=== PATIENT | female | born 1965 | race Caucasian/White ===

== ENCOUNTER 2024-02-17 10:43 | Outpatient (AMB) | payer BC, SELFPAY ==
--- NOTE | 2024-02-17 10:28 | A.OFFPSYCH_ITS ---
Intake Vital Signs 02/17/24 10:28 Height 5 ft 5 in Weight 157 lb Intake Visit Reasons: ADHD , EVERTON severe, depression, Major depressive disorder, recurrent episode, mild Event Marketing Manager Required: No Allergies Sulfa (Sulfonamide Antibiotics) Allergy (Intermediate, Unverified 02/17/24 10:30) Rash epinephrine Adverse Reaction (Unknown, Verified 02/17/24 10:30) rash Medication List - Last Reconciled 02/17/24 by Taty Bingham APRN citalopram 40 mg PO DAILY hydroxyzine HCl mg PO methylphenidate HCl 10 mg PO BID HPI- Psychiatric Chief Complaint: ADHD , EVERTON severe, depression, Major depressive disorder, recurrent episode, mild HPI Narrative: Pt has had severe anxiety and stress; she is not sure about precipitant. 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 reports she is taking the hydroxyzine 25mg BID. No recent hives; she has had itching but not hives. she still has nightmares about work. no loss of appetite; no change in sleep. she reports some sexual side effects from meds. she reports she is doing better overall; EVERTON-7 is an 8. she is getting 6-7 hours of sleep. she is taking meds regularly; she is seeing her therapist regularly. Past Psychiatric History: In therapy for 20 + yrs. On meds currently2 serious depressive episodes- first episode of depression at age 19 when father . then again at age 38 then again at age 48. For years, used keeping busy to manage anxiety. As getting older doesn't want to use busyness to cope; she would like to be able to relax more often and do leisure activities. Depression at age 38 - couldn't work, no energy, cried all the time, sad, no motivation. Had a very bad work situation at the time No IPLOC, no PHP or IOP. Subjective Subjective Subjective Medication Compliance: Yes Side effects from medications: No Review of Systems Medical Review of Systems: unchanged Mental Status Exam Mental Status Exam Patient Appearance: Well Grooomed and Appropriate Patient Orientation: Person, Place, Time and Situation Level of Consciousness: Appropriate Patient Behavior: Appropriate Mood Description: Anxious and Apprehensive Affect Description: Constricted and Anxious Patient Cognition Impaired: No Ability to Follow Directions: Good Speech Pattern: Clear and Appropriate Memory Description: Intact Hallucinations: None Delusions: Not Present Thought Process: Intact Thought Content: positive for Intact and positive for Goal Oriented Judgement: Good Assessment and Plan Assessment & Plan (1) Mild episode of recurrent major depressive disorder: Code(s): F33.0 - Major depressive disorder, recurrent, mild (2) EVERTON (generalized anxiety disorder): Status: Acute Code(s): F41.1 - Generalized anxiety disorder (3) ADHD (attention deficit hyperactivity disorder): Status: Acute Qualifiers: Attention deficit-hyperactivity disorder type: combined inattentive- hyperactive Qualified Code(s): F90.2 - Attention-deficit hyperactivity disorder, combined type Code(s): F90.9 - Attention-deficit hyperactivity disorder, unspecified type (4) Side effect of drug: Status: Acute Code(s): T88.7XXA - Unspecified adverse effect of drug or medicament, initial encounter Plan continue medications as is as patient reports good efficacy and doesn't want to change medicaitons. discussed strategies to reduce burden of sexual side effects return in 2 months Medications: New citalopram 40 mg PO DAILY 90 tabs 1RF hydroxyzine HCl 25 mg PO QID PRN 120 tabs 2RF itching methylphenidate HCl 10 mg PO BID 30 days 60 tabs 0RF Counseling and coordination of Care Pt. Self Management counseling: Breathing, Exercise, Mindfulness, Muscle relaxation and Sleep hygiene Medication management counseling: Effectiveness, Side effects, Dosing range, Duration, Drug interaction, Adherence and Other (side effect management) Diagnosis and Prognosis Counseling: Accuracy of diagnosis, Impact of diagnosis on life functions, Impact of family relationship and Adequacy of current interventions Details: I spent 45 minutes reviewing the record, seeing the patient and documenting in the medical record. Counseling provided to the patient/caregiver as outlined below. Addressed patient/caregiver concerns regarding current medication regime including effective adherence. Addressed patient/caregiver concerns regarding diagnosis and prognosis including accuracy of diagnosis, prognosis over time, impact of diagnosis. Addressed patient/caregiver concerns regarding impact of recent stressors. 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 is supportive has a masters degree in teaching strengths: likes crafts, knits, spinning, working on [employer] Substance History: none Trauma History: loss of brother to pancreatic cancer Coding Level of Care Code Est Pt Level 5 (82027) Diagnoses Mild episode of recurrent major depressive disorder F33.0 EVERTON (generalized anxiety disorder) F41.1 Attention deficit hyperactivity disorder (ADHD), combined type F90.2 Attention deficit-hyperactivity disorder type: combined inattentive- hyperactive Side effect of drug T88.7XXA
== END 2024-02-17 11:29 | disposition home or self-care (01) ==
LOC: HO.HOP 10:43
PROVIDERS: PCP Internal Medicine Endocrinology, Diabetes & Metabolism; Visit Provider Clinical Nurse Specialist Psychiatric/Mental Health
DX: F33.0 Major depressive disorder, recurrent, mild (principal); F41.1 Generalized anxiety disorder; F90.2 Attention-deficit hyperactivity disorder, combined type
CPT/HCPCS: 99215

== ENCOUNTER → 2024-02-17 10:43 | Outpatient (BNVA) | payer BC, SELFPAY | PROVIDERS: PCP Internal Medicine Endocrinology, Diabetes & Metabolism; Visit Provider Clinical Nurse Specialist Psychiatric/Mental Health ==

== ENCOUNTER 2024-04-13 10:35 | Outpatient (AMB) | payer BC, SELFPAY ==
--- NOTE | 2024-04-13 10:41 | A.OFFPSYCH_ITS ---
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 avoids starting projects at times; can feel overwhelmed with some taks. coping well overalll; no medical changes; no new medications; no SI or HI Past Psychiatric History: In therapy for 20 + yrs. On meds currently2 serious depressive episodes- first episode of depression at age 19 when father . then again at age 38 then again at age 48. For years, used keeping busy to manage anxiety. As getting older doesn't want to use busyness to cope; she would like to be able to relax more often and do leisure activities. Depression at age 38 - couldn't work, no energy, cried all the time, sad, no motivation. Had a very bad work situation at the time No IPLOC, no PHP or IOP. Subjective Subjective Subjective Medication Compliance: Yes Side effects from medications: No Review of Systems Medical Review of Systems: unchanged Mental Status Exam Mental Status Exam Patient Appearance: Well Grooomed and Appropriate Patient Orientation: Person, Place, Time and Situation Level of Consciousness: Awake and Appropriate Patient Behavior: Appropriate, Anxious and Good Eye Contact Mood Description: Happy and Anxious Affect Description: Happy and Anxious Patient Cognition Impaired: No Ability to Follow Directions: Good Speech Pattern: Clear and Appropriate Memory Description: Intact Hallucinations: None Delusions: Not Present Perceptual Disturbances: Depersonalization Thought Process: Intact and Goal Oriented Thought Content: positive for Intact and positive for Goal Oriented Judgement: Fair Assessment and Plan Assessment & Plan (1) ADHD (attention deficit hyperactivity disorder): Status: Acute Qualifiers: Attention deficit-hyperactivity disorder type: combined inattentive- hyperactive Qualified Code(s): F90.2 - Attention-deficit hyperactivity disorder, combined type Code(s): F90.9 - Attention-deficit hyperactivity disorder, unspecified type (2) EVERTON (generalized anxiety disorder): Status: Acute Code(s): F41.1 - Generalized anxiety disorder Plan continue celxa continue hydroxyzine continue ritalin return in 3 months Medications: Refilled methylphenidate HCl 10 mg PO BID 60 tabs 0RF 30 days Counseling and coordination of Care Pt. Self Management counseling: Maintenance-social rhythm, Mod caffeine/ETOH intake, Behavior activation and General coping skills Medication management counseling: Effectiveness, Side effects, Dosing range, Duration, Drug interaction and Adherence Diagnosis and Prognosis Counseling: Accuracy of diagnosis, Prognosis over time, Impact of diagnosis on life functions and Adequacy of current interventions Details: I spent 30 minutes reviewing the record, seeing the patient and documenting in the medical record. Counseling provided to the patient/caregiver as outlined below. Addressed patient/caregiver concerns regarding current medication regime including effective adherence. Addressed patient/caregiver concerns regarding diagnosis and prognosis including accuracy of diagnosis, prognosis over time, impact of diagnosis. Addressed patient/caregiver concerns regarding impact of recent stressors. 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 is supportive has a masters degree in teaching strengths: likes crafts, knits, spinning, working on [employer] Substance History: none Trauma History: loss of brother to pancreatic cancer Coding Level of Care Code Est Pt Level 4 (10122) Diagnoses Attention deficit hyperactivity disorder (ADHD), combined type F90.2 Attention deficit-hyperactivity disorder type: combined inattentive- hyperactive EVERTON (generalized anxiety disorder) F41.1
== END 2024-04-13 17:30 | disposition home or self-care (01) ==
LOC: HO.HOP 10:35
PROVIDERS: PCP Internal Medicine Endocrinology, Diabetes & Metabolism; Visit Provider Clinical Nurse Specialist Psychiatric/Mental Health
DX: F90.2 Attention-deficit hyperactivity disorder, combined type (principal); F41.1 Generalized anxiety disorder
CPT/HCPCS: 99214

== ENCOUNTER → 2024-04-13 10:35 | Outpatient (BNVA) | payer BC, SELFPAY | PROVIDERS: PCP Internal Medicine Endocrinology, Diabetes & Metabolism; Visit Provider Clinical Nurse Specialist Psychiatric/Mental Health ==

== ENCOUNTER 2024-07-28 10:28 | Outpatient (AMB) | payer BC, SELFPAY ==
--- NOTE | 2024-07-28 10:37 | A.OFFPSYCH_ITS ---
Intake Intake Visit Reasons: depression Appeals Referee Required: No Allergies Sulfa (Sulfonamide Antibiotics) Allergy (Intermediate, Unverified 02/17/24 10:30) Rash epinephrine Adverse Reaction (Unknown, Verified 02/17/24 10:30) rash Medication List - Last Reconciled 07/28/24 by Taty Bignham APRN citalopram 40 mg PO DAILY hydroxyzine HCl 25 mg PO QID PRN methylphenidate HCl 10 mg PO BID 30 days HPI- Psychiatric Chief Complaint: depression HPI Narrative: pt has increased anxiety. Her 96 yr old mother has been having health problems and she is the primary support. Her son and are having a baby soon ans she has been working on projects fro the baby. she has had less time for self care. she has been compliant with meds but decreases the prn meds. she has had an IBS flare up and rash. Past Psychiatric History: In therapy for 20 + yrs. On meds currently2 serious depressive episodes- first episode of depression at age 19 when father . then again at age 38 then again at age 48. For years, used keeping busy to manage anxiety. As getting older doesn't want to use busyness to cope; she would like to be able to relax more often and do leisure activities. Depression at age 38 - couldn't work, no energy, cried all the time, sad, no motivation. Had a very bad work situation at the time No IPLOC, no PHP or IOP. Subjective Subjective Subjective Medication Compliance: Yes Side effects from medications: No Review of Systems Medical Review of Systems: unchanged Mental Status Exam Mental Status Exam Patient Appearance: Well Grooomed and Appropriate Patient Orientation: Person, Place, Time and Situation Level of Consciousness: Awake, Appropriate and Alert Patient Behavior: Appropriate Mood Description: Anxious Affect Description: Anxious Patient Cognition Impaired: No Ability to Follow Directions: Good Speech Pattern: Clear Memory Description: Intact Hallucinations: None Thought Process: Intact Thought Content: positive for Intact Assessment and Plan Assessment & Plan (1) EVERTON (generalized anxiety disorder): Status: Acute Code(s): F41.1 - Generalized anxiety disorder (2) ADHD (attention deficit hyperactivity disorder): Status: Acute Qualifiers: Attention deficit-hyperactivity disorder type: combined inattentive- hyperactive Qualified Code(s): F90.2 - Attention-deficit hyperactivity disorder, combined type Code(s): F90.9 - Attention-deficit hyperactivity disorder, unspecified type Plan encouraged pt to take PRN hydroxyzine a bedtime and take clonazepam 1/4 to 1/2 tab qd prn anxiety Medications: New clonazepam 0.5 mg PO DAILY PRN 30 tabs 0RF anxiety Counseling and coordination of Care Details: I spent 30 minutes reviewing the record, seeing the patient and documenting in the medical record. Counseling provided to the patient/caregiver as outlined below. Addressed patient/caregiver concerns regarding current medication regime including effective adherence. Addressed patient/caregiver concerns regarding diagnosis and prognosis including accuracy of diagnosis, prognosis over time, impact of diagnosis. Addressed patient/caregiver concerns regarding impact of recent stressors. 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
== END 2024-07-28 10:51 | disposition home or self-care (01) ==
LOC: HO.HOP 10:28
PROVIDERS: PCP Internal Medicine Endocrinology, Diabetes & Metabolism; Visit Provider Clinical Nurse Specialist Psychiatric/Mental Health
DX: F41.1 Generalized anxiety disorder (principal); F90.2 Attention-deficit hyperactivity disorder, combined type
CPT/HCPCS: 99214

== ENCOUNTER → 2024-07-28 10:28 | Outpatient (BNVA) | payer BC, SELFPAY | PROVIDERS: PCP Internal Medicine Endocrinology, Diabetes & Metabolism; Visit Provider Clinical Nurse Specialist Psychiatric/Mental Health ==

== ENCOUNTER 2024-10-27 09:19 | Outpatient (AMB) | payer BC, SELFPAY ==
--- NOTE | 2024-10-27 09:13 | MHC.OFFVISPS ---
Intake Intake Visit Reasons: Depression Allergies Sulfa (Sulfonamide Antibiotics) Allergy (Intermediate, Unverified 02/17/24 10:30) Rash epinephrine Adverse Reaction (Unknown, Verified 02/17/24 10:30) rash Medication List - Last Reconciled 10/27/24 by Taty Bingham APRN citalopram 40 mg PO DAILY clonazepam 0.5 mg PO DAILY PRN hydroxyzine HCl 25 mg PO QID PRN methylphenidate HCl 10 mg PO BID 30 days HPI- Psychiatric Chief Complaint: Depression HPI Narrative: pt reports overall improvement. she did have shingles shortly after last visist- she reports high stress with mother' health and upcoming baby shower for her daughter in law and son. Her mother s health is better. She report her grandson born October 09. He and parents doing well; she is adjusting to the role of grandparent. She is seeing therpaist biweekly and continues with self care including yoga; no medical changes; no side effects from meds; sleep and appetite intact. No SI or HI Past Psychiatric History: In therapy for 20 + yrs. On meds currently2 serious depressive episodes- first episode of depression at age 19 when father . then again at age 38 then again at age 48. For years, used keeping busy to manage anxiety. As getting older doesn't want to use busyness to cope; she would like to be able to relax more often and do leisure activities. Depression at age 38 - couldn't work, no energy, cried all the time, sad, no motivation. Had a very bad work situation at the time No IPLOC, no PHP or IOP. Subjective Subjective Subjective Medication Compliance: Yes Side effects from medications: No Review of Systems Medical Review of Systems: unchanged Mental Status Exam Mental Status Exam Patient Appearance: Well Grooomed and Appropriate Patient Orientation: Person, Place, Time and Situation Level of Consciousness: Awake and Appropriate Patient Behavior: Appropriate Mood Description: Constricted and Anxious Affect Description: Constricted and Anxious Patient Cognition Impaired: No Ability to Follow Directions: Good Speech Pattern: Clear Memory Description: Intact Hallucinations: None Delusions: Not Present Thought Process: Intact and Goal Oriented Thought Content: positive for Intact and positive for Goal Oriented Judgement: Good Telehealth Telehealth Telehealth Platform: Other (please specify) ([email or web address]) Location of provider rendering services: practice address Location of patient: address on file Patient Identification confirmed using: Name, : Yes Telehealth method: video Patient verbally consented to treatment: Yes Patient verbally consented to billing insurance company: Yes Patient informed of any privacy concerns related to visit: Yes Minutes spent on Phone/Video with Pt.: 30 Assessment and Plan Assessment & Plan (1) ADHD (attention deficit hyperactivity disorder): Status: Acute Qualifiers: Attention deficit-hyperactivity disorder type: combined inattentive-hyperactive Qualified Code(s): F90.2 - Attention-deficit hyperactivity disorder, combined type Code(s): F90.9 - Attention-deficit hyperactivity disorder, unspecified type (2) EVERTON (generalized anxiety disorder): Status: Acute Code(s): F41.1 - Generalized anxiety disorder Plan continue meds below continue hydroxyzine and clonazepam prn (no refills needed at this time) return in 2 months Medications: Refilled methylphenidate HCl 10 mg PO BID 30 days 60 tabs 0RF citalopram 40 mg PO DAILY 90 tabs 1RF Counseling and coordination of Care Pt. Self Management counseling: Exercise, Maintenance-social rhythm, Mindfulness, Sleep hygiene, Behavior activation, General coping skills and Problem solving Medication management counseling: Effectiveness, Side effects, Dosing range, Duration, Drug interaction and Adherence Diagnosis and Prognosis Counseling: Accuracy of diagnosis, Prognosis over time, Impact of diagnosis on life functions, Impact of family relationship, Problematic behaviors secondary to diagnosis and Adequacy of current interventions Details: I spent 40 minutes reviewing the record, seeing the patient and documenting in the medical record. Counseling provided to the patient/caregiver as outlined below. Addressed patient/caregiver concerns regarding current medication regime including effective adherence. Addressed patient/caregiver concerns regarding diagnosis and prognosis including accuracy of diagnosis, prognosis over time, impact of diagnosis. Addressed patient/caregiver concerns regarding impact of recent stressors. 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
== END 2024-10-27 09:20 | disposition home or self-care (01) ==
LOC: HO.HOP 09:19
PROVIDERS: PCP Internal Medicine Endocrinology, Diabetes & Metabolism; Visit Provider Clinical Nurse Specialist Psychiatric/Mental Health
DX: F90.2 Attention-deficit hyperactivity disorder, combined type (principal); F41.1 Generalized anxiety disorder
CPT/HCPCS: 99214

== ENCOUNTER → 2024-10-27 09:19 | Outpatient (BNVA) | payer BC, SELFPAY | PROVIDERS: PCP Internal Medicine Endocrinology, Diabetes & Metabolism; Visit Provider Clinical Nurse Specialist Psychiatric/Mental Health ==

== ENCOUNTER 2024-12-28 13:22 | Outpatient (AMB) | payer BC, SELFPAY ==
--- NOTE | 2024-12-28 11:37 | A.OFFPSYCH_ITS ---
Intake Intake Visit Reasons: Depression Mechanical Engineering Intern Required: No Allergies Sulfa (Sulfonamide Antibiotics) Allergy (Intermediate, Unverified 02/17/24 10:30) Rash epinephrine Adverse Reaction (Unknown, Verified 02/17/24 10:30) rash Medication List - Last Reconciled 12/28/24 by Taty Bingham APRN citalopram 40 mg PO DAILY clonazepam 0.5 mg PO DAILY PRN hydroxyzine HCl 25 mg PO QID PRN methylphenidate HCl 10 mg PO BID 30 days HPI- Psychiatric Chief Complaint: Depression HPI Narrative: pt reports stable. reports some anxiety and self criticism when not overly busy; adjusting to residential. adjusting to new role as grandparent; taking meds consistently, no side effects; no hives or itching which has been a sign in past for her when anxiety and stress high. no SI or HI. no medical changes. Past Psychiatric History: In therapy for 20 + yrs. On meds currently2 serious depressive episodes- first episode of depression at age 19 when father . then again at age 38 then again at age 48. For years, used keeping busy to manage anxiety. As getting older doesn't want to use busyness to cope; she would like to be able to relax more often and do leisure activities. Depression at age 38 - couldn't work, no energy, cried all the time, sad, no motivation. Had a very bad work situation at the time No IPLOC, no PHP or IOP. Subjective Subjective Subjective Medication Compliance: Yes Side effects from medications: No Review of Systems Medical Review of Systems: unchanged Mental Status Exam Mental Status Exam Patient Appearance: Well Grooomed and Appropriate Patient Orientation: Person, Place, Time and Situation Level of Consciousness: Awake, Appropriate and Alert Patient Behavior: Appropriate and Anxious Mood Description: Anxious Affect Description: Anxious Patient Cognition Impaired: No Ability to Follow Directions: Good Speech Pattern: Clear, Appropriate and Coherent Memory Description: Intact Hallucinations: None Delusions: Not Present Thought Process: Intact Judgement: Good Assessment and Plan Assessment & Plan (1) ADHD (attention deficit hyperactivity disorder): Status: Acute Qualifiers: Attention deficit-hyperactivity disorder type: combined inattentive- hyperactive Qualified Code(s): F90.2 - Attention-deficit hyperactivity disorder, combined type Code(s): F90.9 - Attention-deficit hyperactivity disorder, unspecified type (2) EVERTON (generalized anxiety disorder): Status: Acute Code(s): F41.1 - Generalized anxiety disorder Plan continue medications below Medications: Refilled citalopram 40 mg PO DAILY 90 tabs 1RF clonazepam 0.5 mg PO DAILY PRN 30 tabs 0RF anxiety methylphenidate HCl 10 mg PO BID 30 days 60 tabs 0RF Counseling and coordination of Care Pt. Self Management counseling: Exercise, Maintenance-social rhythm and General coping skills Medication management counseling: Effectiveness, Side effects, Dosing range, Duration, Drug interaction and Adherence Diagnosis and Prognosis Counseling: Accuracy of diagnosis, Prognosis over time, Impact of diagnosis on life functions, Impact of family relationship, Problematic behaviors secondary to diagnosis and Adequacy of current interventions Details: I spent [] minutes reviewing the record, seeing the patient and documenting in the medical record. Counseling provided to the patient/caregiver as outlined below. Addressed patient/caregiver concerns regarding current medication regime including effective adherence. Addressed patient/caregiver concerns regarding diagnosis and prognosis including accuracy of diagnosis, prognosis over time, impact of diagnosis. Addressed patient/caregiver concerns regarding impact of recent stressors. 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
== END 2024-12-28 13:23 | disposition home or self-care (01) ==
LOC: HO.HOP 13:22
PROVIDERS: PCP Internal Medicine Endocrinology, Diabetes & Metabolism; Visit Provider Clinical Nurse Specialist Psychiatric/Mental Health
DX: F90.2 Attention-deficit hyperactivity disorder, combined type (principal); F41.1 Generalized anxiety disorder
CPT/HCPCS: 99214

== ENCOUNTER 2025-03-01 11:33 | Outpatient (AMB) | payer BC, SELFPAY ==
--- OUTSIDE RECORDS SUMMARY | 2025-03-01 13:58 | XMS_ITS | Continuity of Care Document ---
Author Organization [facility] [address] [place] [address] Phone [phone] Care Team Providers Care Instructor Dramatic Arts Name Role Phone Nessa Holley M.D. Care Team Informati on Front End Manager [phone] Problems Active Problems Provider Date Anxiety Nessa sparks M.D. Onset: 08/01/2022 H/O: eczema Nessa sparks M.D. Onset: 08/01/2022 Chronic depression Nessa sparks M.D. Onset: 08/01/2022 Pure hypercholesterolemia Nessa Pizano M.D. Onset: 08/01/2022 Osteopenia Nessa sparks M.D. Onset: 08/01/2022 Undifferentiated attention d eficit disorder Nessa Holley M.D. Onset: 08/01/2022 Subclinical hypothyroidism Nessa Shaver M.D. Onset: 08/01/2022 Gastroesophageal reflux disease Nessa Holley M.D. Onset: 08/01/2022 Irritable bowel syndrome Nessa Wilder M.D. Onset: 08/01/2022 Varicose veins of lower extremity Cathryn Holley M.D. Onset: 08/01/2022 Social History Type Date Description Comments Sex Unknown Lives With Spouse Occupation Teacher Work Status Retired Tobacco Use Start: Unknown Never Smoked Cigarettes ETOH Use Occasionally consumes wine Allergies and adverse reactions Active Allergies Criticality Reaction Severity Comments Date Sulfamethizole Unable to assess criticality 08/01/2022 Epinephrine Unable to assess criticality 08/01/2022 Medications Active Medications SIG Qnty Indications Order ing Provider Date Citalopram [id number] Tablets 1 qd Unknown Methylphenidate [id number] Tablets 1 bid Unknown Clonazepam0.5mg Tablets 1 tab by mouth every 8 hours as needed 30tabs Nessa Holley M.D. [id number] Capsules DR 1 by mouth bid prn 90caps Nessa Holley M.D. Vitamin [id number] (1999 Ut) Capsules 1 by mouth every day Nessa Holley M.D. Hydroxyzine [id number] Tablets take 1 tablet by mouth daily as needed Unknown Vital Signs Date Vital Result Comment 08/04/2024 10:51am Weight 172.00 lb Results Test Acquired Date Facility Test Result H/L Range Note Lipid Panel 08/28/2024 [facility] Cholesterol, Total 239 mg/dL High 100-199 Triglycerides 87 mg/dL 0-149 HDL Cholesterol 86 mg/dL >39 VLDL Cholesterol Avery 15 mg/dL 5-40 LDL Chol Calc ([facility]) 138 mg/dL High 0-99 LDL Calc Comment: TNP Urinalysis, Complete 08/28/2024 [facility] Specific [place] 1.016 1.005-1.0 30 pH 8.0 High 5.0-7.5 Urine-Color Yellow Yellow Appearance Clear Clear WBC Esterase Negative Negative Protein Negative Negative/ Trace Glucose Negative Negative Ketones Negative Negative Occult Blood Negative Negative Bilirubin Negative Negative Urobilinogen,Se mi-Qn 0.2 mg/dL 0.2-1.0 Nitrite, Urine Negative Negative Microscopic Examination See Comment: 1 Microscopic Examination See below: 2 WBC None seen /hpf 0 - 5 RBC 0-2 /hpf 0 - 2 Epithelial Cells (non renal) 0-10 /hpf 0 - 10 Epithelial Cells (renal) TNP Casts None seen /lpf None seen Cast Type TNP Crystals TNP Crystal Type TNP Mucus Threads TNP Bacteria None seen None seen/Few Yeast TNP Trichomonas TNP Comment TNP CBC With Differential/Pl atelet 08/28/2024 [facility] WBC 4.0 x10E3/uL 3.4-10.8 RBC 4.64 x10E6/uL 3.77-5.28 Hemoglobin 15.0 g/dL 11.1-15.9 Hematocrit 46.0 % 34.0-46.6 MCV 99 fL High 79-97 MCH 32.3 pg 26.6-33.0 MCHC 32.6 g/dL 31.5-35.7 RDW 12.2 % 11.7-15.4 Platelets 241 x10E3/uL 150-450 Neutrophils 49 % Not Estab. Lymphs 32 % Not Estab. Monocytes 11 % Not Estab. Eos 8 % Not Estab. Basos 0 % Not Estab. Immature Cells TNP Neutrophils (Absolute) 2.0 x10E3/uL 1.4-7.0 Lymphs (Absolute) 1.3 x10E3/uL 0.7-3.1 Monocytes(Absol sesar) 0.4 x10E3/uL 0.1-0.9 Eos (Absolute) 0.3 x10E3/uL 0.0-0.4 Baso (Absolute) 0.0 x10E3/uL 0.0-0.2 Immature Granulocytes 0 % Not Estab. Immature Grans (Abs) 0.0 x10E3/uL 0.0-0.1 NRBC TNP Hematology Comments: TNP TSH+Free T4 08/28/2024 [facility] TSH 5.130 uIU/mL High 0.450-4.5 00 T4,Free(Direct) 0.91 ng/dL 0.82- 1.77 Vitamin D, 25-Hydroxy 08/28/2024 [facility] Vitamin D, 25-Hydroxy 36.4 ng/mL 30.0-100. 0 3 C-Reactive Protein, Cardiac 08/28/2024 [facility] C-Reactive Protein, Cardiac 0.80 mg/L 0.00-3.00 4 Comp. Metabolic Panel (14) 08/28/2024 [facility] Glucose 99 mg/dL 70-99 BUN 14 mg/dL 8-27 Creatinine 0.90 mg/dL 0.57-1.00 eGFR 73 mL/min/1.73 >59 BUN/Creatinine Ratio 16 12-28 Sodium 139 mmol/L 134-144 Potassium 4.4 mmol/L 3.5-5.2 Chloride 102 mmol/L 96-106 Carbon Dioxide, Total 24 mmol/L 20-29 Calcium 9.5 mg/dL 8.7-10.3 Protein, Total 6.9 g/dL 6.0-8.5 Albumin 4.4 g/dL 3.9-4.9 Globulin, Total 2.5 g/dL 1.5-4.5 Bilirubin, Total 0.4 mg/dL 0.0-1.2 Alkaline Phosphatase 81 IU/L 44-121 Ast (Sgot) 24 IU/L 0-40 Alt (SGPT) 16 IU/L 0-32 TSH With Reflex To FT4 08/10/2023 [facility] TSH With Reflex To FT4 5.05 uIU/mL High (0.4-4.2) Free T4 08/10/2023 [facility] Free T4 0.93 ng/dL (0.70-1.8 0) 25Oh Vitamin D 08/10/2023 [facility] 25Oh Vitamin D 41.4 NG/ML (20-50) Urinalysis Complete 08/10/2023 [facility] Appear/Color LIGHT YELLOW 5 SP. [place] 1.015 (1.002-1. 030) Urine PH 6.5 (5.0-8.0) Urine Albumin NEGATIVE (Neg) Urine Glucose NEGATIVE (Neg) Urine Ketones NEGATIVE (Neg) Urine Bilirubin NEGATIVE (Neg) Urine Hemoglobin TRACE Abnormal (Neg) Urine Nitrite NEGATIVE (Neg) Urine Leukocyte NEGATIVE (Neg) Urobilinogen NORMAL mg/dL (Norm) Urine WBCs NONE SEEN /HPF (0-5) Urine RBCs 1 /HPF (0-3) Squamous Epith 1 /HPF (0-8) Complete Abc With Diff 08/10/2023 [facility] WBC 4.5 K/MM3 (4.0-11.0 ) RBC 4.44 M/MM3 (4.20-5.4 0) HGB 14.2 GM/DL (11.7-15. 5) HCT 43.2 % (35.7-45. 8) MCV 97.3 FL (80.0-100 .0) MCH 32.0 pg (27.0-34. 0) MCHC 32.9 g/dL Low (33.0-37. 0) PLT 232 K/MM3 (150-460) RDW-SD 43.9 FL (<47.0) MPV 8.6 FL Low (9.4-12.4 ) Automated NRBC 0.0 #/100WBC'S Abs. NRBC 0.0 K/MM3 Neut # 2.1 K/MM3 (1.3-7.0) Lymph # 1.3 K/MM3 (0.8-3.1) [place]# 0.5 K/MM3 (0.4-0.9) Eo # 0.5 K/MM3 High (0.0-0.4) Baso # 0.0 K/MM3 (0.0-0.1) Abs. Imm Gran 0.0 K/MM3 Neut 48.1 % (44-76) Lymph 29.7 % (15-43) Monocyte 11.2 % High (4.5-10.5 ) Eo 10.6 % High (0-6) Baso 0.2 % (0-2) Imm Gran 0.2 % Lipid Panel 08/10/2023 [facility] Cholesterol, Total 256 mg/dL High (<200) Triglyceride 59 mg/dL (<150) HDL Chol 99 mg/dL (>39) LDL Cholesterol, Calculated 145 mg/dL High (0-130) Non HDL Cholesterol (Calc) 157 mg/dL (<160) Comprehensive Metabolic Panl 08/10/2023 [facility] Glucose 99 mg/dL (70-99) BUN 21 mg/dL (8-23) Creatinine 0.9 mg/dL (0.5-1.0) Sodium 141 mmol/L (133-145) Potassium 4.7 mmol/L (3.6-5.2) Chloride 103 mmol/L (98-107) Bicarbonate 28 mmol/L (22-29) Anion Gap 10 (4-17) Albumin 4.5 GM/DL (3.4-4.8) Calcium 9.4 mg/dL (8.6-10.5 ) Bilirubin,Total 0.4 mg/dL (0-1.2 ) Total Protein 6.6 GM/DL (6.2-8.2 ) Ag Ratio 2.1 Ast 25 U/L (0-32) Alk Phos 82 U/L (35-104) Alt 20 U/L (0-33) Estimated GFR Creatinine 69 ML/MIN/1.73 M2 6 Urinalysis Complete 12/19/2022 [facility] Appear/Color LIGHT YELLOW 7 SP. [place] 1.008 (1.002-1. 030) Urine PH 6.5 (5.0-8.0) Urine Albumin 1+ Abnormal (Neg) Urine Glucose NEGATIVE (Neg) Urine Ketones NEGATIVE (Neg) Urine Bilirubin NEGATIVE (Neg) Urine Hemoglobin 3+ Abnormal (Neg) Urine Nitrite NEGATIVE (Neg) Urine Leukocyte 3+ Abnormal (Neg) Urobilinogen NORMAL mg/dL (Norm) Urine WBCs >182 /HPF High (0-5) Urine RBCs 66 /HPF High (0-3) Bacteria HEAVY HPF Abnormal (Neg) Mucus SLIGHT /LPF WBC Clumps HEAVY /HPF Squamous Epith 1 /HPF (0-8) Culture Urine 12/19/2022 [facility] Specimen Description CLEAN CATCH (URI <SEE NOTE> 8 Special Requests NONE Culture Mixed bacterial <SEE NOTE> 9 Report Status FINAL 12/21/2022 10 Comprehensive Metabolic Panl 08/07/2022 [facility] Glucose 93 mg/dL (70-99) BUN 13 mg/dL (6-20) Creatinine 0.9 mg/dL (0.5-1.0) Sodium 137 mmol/L (133-145) Potassium 4.5 mmol/L (3.6-5.2) Chloride 100 mmol/L (98-107) Bicarbonate 30 mmol/L High (22-29) Anion Gap 7 (4-17) Albumin 4.6 GM/DL (3.4-4.8) Calcium 9.6 mg/dL (8.6-10.5 ) Bilirubin,Total 0.3 mg/dL (0-1.2 ) Total Protein 6.8 GM/DL (6.2-8.2 ) Ag Ratio 2.1 Ast 20 U/L (0-32) Alk Phos 71 U/L (35-104) Alt 16 U/L (0-33) Estimated GFR Creatinine 78 ML/MIN/1.73 M2 11 Lipid Panel 08/07/2022 [facility] Cholesterol, Total 263 mg/dL High (<200) Triglyceride 71 mg/dL (<150) HDL Chol 86 mg/dL (>39) LDL Cholesterol, Calculated 163 mg/dL High (0-130) Non HDL Cholesterol (Calc) 177 mg/dL High (<160) Urinalysis Complete 08/07/2022 [facility] Appear/Color LIGHT YELLOW 12 SP. [place] 1.014 (1.002-1. 030) Urine PH 7.5 (5.0-8.0) Urine Albumin NEGATIVE (Neg) Urine Glucose NEGATIVE (Neg) Urine Ketones NEGATIVE (Neg) Urine Bilirubin NEGATIVE (Neg) Urine Hemoglobin NEGATIVE (Neg) Urine Nitrite NEGATIVE (Neg) Urine Leukocyte NEGATIVE (Neg) Urobilinogen NORMAL mg/dL (Norm) Urine WBCs 1 /HPF (0-5) Urine RBCs 1 /HPF (0-3) Squamous Epith <1 /HPF (0-8) Hemoglobin A1c 08/07/2022 [facility] Hemoglobin A1c 5.6 % (4.0-5.6) 13 Complete Abc With Diff 08/07/2022 [facility] WBC 5.0 K/MM3 (4.0-11.0 ) RBC 4.33 M/MM3 (4.20-5.4 0) HGB 14.1 GM/DL (11.7-15. 5) HCT 42.2 % (35.7-45. 8) MCV 97.5 FL (80.0-100 .0) MCH 32.6 pg (27.0-34. 0) MCHC 33.4 g/dL (33.0-37. 0) PLT 239 K/MM3 (150-460) RDW-SD 44.7 FL (<47.0) MPV 8.7 FL Low (9.4-12.4 ) Automated NRBC 0.0 #/100WBC'S Abs. NRBC 0.0 K/MM3 Neut # 2.4 K/MM3 (1.3-7.0) Lymph # 1.2 K/MM3 (0.8-3.1) [place]# 0.6 K/MM3 (0.4-0.9) Eo # 0.8 K/MM3 High (0.0-0.4) Baso # 0.0 K/MM3 (0.0-0.1) Abs. Imm Gran 0.0 K/MM3 Neut 48.0 % (44-76) Lymph 23.1 % (15-43) Monocyte 12.0 % High (4.5-10.5 ) Eo 15.9 % High (0-6) Baso 0.6 % (0-2) Imm Gran 0.4 % TSH With Reflex To FT4 08/07/2022 [facility] TSH With Reflex To FT4 3.57 uIU/mL (0.4-4.2) 1 Microscopic follows if indicated. 2 Microscopic was avtar cated and was performed. 3 Vitamin D deficiency has been defined by the [place] [employer] and an Endocrine Society practice guideline as a level of serum 25-OH vitamin D less than 20 ng/mL (1,2). The Endocrine Society went on to further define vitamin D insufficiency as a level between 21 and 29 ng/mL (2). 1. IOM ([place] [employer]). 2010. Dietary reference intakes for calcium and D. [place]: The National [employer]. 2. Ryan MF, Herbert PRICE, Emil REBOLLAR, et al. Evaluation, treatment, and prevention of vitamin D deficiency: an Endocrine Society clinical practice guideline. JCEM. 2010; 96(7):1911-30. 4 Relative Risk for Fu ture Cardiovascular Event Low <1.00 Average 1.00 - 3.00 High >3.00 5 CLEAR 6 Creatinine based est imated glomerular filtration (eGFR) in adults is calculated using the National Kidney Foundation recommended 2020 CKD-EPI equation. Estimates GFR from serum creatinine, age and sex. 7 TURBID 8 CLEAN CATCH (URINE) 9 Mixed bacterial irene a, indicative of urogenital contamination. 10 FINAL 12/21/2022 11 Creatinine based est imated glomerular filtration (eGFR) in adults is calculated using the National Kidney Foundation recommended 2020 CKD-EPI equation. Estimates GFR from serum creatinine, age and sex. 12 CLEAR 13 MONITORING: In known diabetic patients, hemoglobin A1c targets should be discussed with health care provider. DIAGNOSTIC USE: The [place] Diabetes Association (ADA) and the World Health Organization (WHO) recommend the use of HbA1c to diagnose diabetes using a threshold of 6.5%. Patients who have an HbA1c between 5.7% and 6.4% are considered at increased risk for developing diabetes in the future. CAUTION: Falsely low HbA1c results may be observed in patients with hemolytic anemia, homozygous forms of abnormal hemoglobin (e.g. SS, CC, SC), , recent blood loss or hemoglobin F greater than 7%. Fructosamine may be used as an alternate test in these cases. REFERENCE: ADA: Standards of Medical Care in Diabetes 2020, The Journal of Clinical and Applied Research and Education Volume 43, Supplement 1 Procedures Date Code Description Status 08/02/2023 39825 Collection Of Venous Blood B y Venipuncture Completed Medical Devices Description No Information Available Encounters Type Date Location Provider Dx Diagnosis Office Visit 08/04/2024 9:15a Main Office Nessa Holley M.D. Z00.01 Encounter for general adult medical exam w abnormal findings B02.9 Zoster without compl ications F41.1 Generalized anxiety disorder K21.9 Gastro-esophageal re flux disease without esophagitis E78.00 Pure hypercholestero lemia, unspecified E03.9 Hypothyroidism, unsp ecified M85.80 Oth disrd of bone de nsity and structure, unspecified site Assessments Date Code Description Provider 08/04/2024 Z00.01 Encounter for ge neral adult medical examination with abnormal findings Nessa Holley M.D. 08/04/2024 B02.9 Zoster without complications Nessa Holley M.D. 08/04/2024 F41.1 Generalized anxiety disorder Nessa Holley M.D. 08/04/2024 K21.9 Gastro-esophagea l reflux disease without esophagitis Nessa Holley M.D. 08/04/2024 E78.00 Pure hypercholesterolemia, u nspecified Nessa Holley M.D. 08/04/2024 E03.9 Hypothyroidism, unspecified Nessa Holley M.D. 08/04/2024 M85.80 Other specified disorders of bone density and structure, unspecified site Nessa Holley M.D. Plan of Treatment Future Appointment(s):* 08/10/2025 9:15 am - Nessa Holley M.D. at Main Office 08/04/2024 - Nessa Holley M.D.* Z00.01 Encounter for general adult medical examination with abnormal findings * B02.9 Zoster without complications * F41.1 Generalized anxiety disorder * K21.9 Gastro-esophageal reflux disease without esophagitis * E78.00 Pure hypercholesterolemia, unspecified * E03.9 Hypothyroidism, unspecified * M85.80 Other specified disorders of bone density and structure, unspecified site Functional Status Description No Information Available Mental Status Description No Information Available Referrals Refer to Reason for Referral Status Appt Mark e Shahnaz Felder MD Closed [address] [place] [address] [phone] [facility] [employer] 8 YEAR COLONOSCOPY Cl osed 01/20/[address] [place] [address] [phone] Jailyn Garvey PA Closed [address] [place] [address] [phone] Shahnaz Felder MD Closed [address] [place] [address] [phone]
--- NOTE | 2025-03-01 14:54 | A.OFFPSYCH_ITS ---
Intake Intake Visit Reasons: Depression [employer] 8 Teacher Required: No Allergies Sulfa (Sulfonamide Antibiotics) Allergy (Intermediate, Unverified 02/17/24 10:30) Rash epinephrine Adverse Reaction (Unknown, Verified 02/17/24 10:30) rash Medication List - Last Reconciled 03/01/25 by Taty Bingham APRN citalopram 40 mg PO DAILY clonazepam 0.5 mg PO DAILY PRN hydroxyzine HCl 25 mg PO QID PRN methylphenidate HCl 10 mg PO BID 30 days HPI- Psychiatric Chief Complaint: Depression HPI Narrative: pt reports increase in anxiety and avoidance reports increased difficulty initiating action and completing tasks does not feel depressed but having a harder time coping wiht stress very anxious no SI or HI; future oriented continue to work with therapist exercising weekly Past Psychiatric History: In therapy for 20 + yrs. On meds currently2 serious depressive episodes- first episode of depression at age 19 when father . then again at age 38 then again at age 48. For years, used keeping busy to manage anxiety. As getting older doesn't want to use busyness to cope; she would like to be able to relax more often and do leisure activities. Depression at age 38 - couldn't work, no energy, cried all the time, sad, no motivation. Had a very bad work situation at the time No IPLOC, no PHP or IOP. Subjective Subjective Subjective Medication Compliance: Yes Side effects from medications: No Review of Systems Medical Review of Systems: unchanged Mental Status Exam Mental Status Exam Patient Appearance: Well Grooomed and Appropriate Patient Orientation: Person, Place, Time and Situation Level of Consciousness: Awake Patient Behavior: Appropriate Mood Description: Anxious Affect Description: Anxious Patient Cognition Impaired: No Ability to Follow Directions: Good Speech Pattern: Clear and Appropriate Memory Description: Intact Hallucinations: None Delusions: Not Present Thought Process: Intact and Distracted Thought Content: positive for Intact Judgement: Good Telehealth Telehealth Telehealth Platform: Other (please specify) ([email or web address]) Location of provider rendering services: practice address Location of patient: address on file Patient Identification confirmed using: Name, : Yes Telehealth method: video Patient verbally consented to treatment: Yes Patient verbally consented to billing insurance company: Yes Patient informed of any privacy concerns related to visit: Yes Minutes spent on Phone/Video with Pt.: 30 Assessment and Plan Assessment & Plan (1) [place] (generalized anxiety disorder): Status: Acute Code(s): F41.1 - Generalized anxiety disorder (2) ADHD (attention deficit hyperactivity disorder): Status: Acute Qualifiers: Attention deficit-hyperactivity disorder type: combined inattentive- hyperactive Qualified Code(s): F90.2 - Attention-deficit hyperactivity disorder, combined type Code(s): F90.9 - Attention-deficit hyperactivity disorder, unspecified type Plan trial of long acting ritalin : concerta 36 mg qam daily take clonazepam 1/4 to 1/2 tab BID prn anxiety; may take up to 1 tab BID if needed and not driving. Medications: New methylphenidate HCl ER (Concerta) Partial Fill upon patient request. 27 mg PO QAM 30 tabs 0RF Changed From clonazepam 0.5 mg PO DAILY PRN 30 tabs 0RF anxiety To clonazepam 0.5 mg PO BID PRN 60 tabs 0RF anxiety Refilled citalopram 40 mg PO DAILY 90 tabs 1RF Counseling and coordination of Care Pt. Self Management counseling: Maintenance-social rhythm, Mod caffeine/ETOH intake, Sleep hygiene, Behavior activation, General coping skills and Problem solving Medication management counseling: Effectiveness, Side effects, Dosing range, Duration and Drug interaction Diagnosis and Prognosis Counseling: Accuracy of diagnosis, Prognosis over time, Impact of diagnosis on life functions and Adequacy of current interventions Details: I spent 35 minutes reviewing the record, seeing the patient and documenting in the medical record. Counseling provided to the patient/caregiver as outlined below. Addressed patient/caregiver concerns regarding current medication regime including effective adherence. Addressed patient/caregiver concerns regarding diagnosis and prognosis including accuracy of diagnosis, prognosis over time, impact of diagnosis. Addressed patient/caregiver concerns regarding impact of recent stressors. 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 is supportive has a masters degree in teaching strengths: likes crafts, knits, spinning, working on [employer] Substance History: none Trauma History: loss of brother to pancreatic cancer Coding Level of Care Code Tele Est Pt Level 4 (24897) Diagnoses [place] (generalized anxiety disorder) F41.1 Attention deficit hyperactivity disorder (ADHD), combined type F90.2 Attention deficit-hyperactivity disorder type: combined inattentive- hyperactive
== END 2025-03-01 11:35 | disposition home or self-care (01) ==
LOC: HO.HOP 11:33
PROVIDERS: PCP Internal Medicine Endocrinology, Diabetes & Metabolism; Visit Provider Clinical Nurse Specialist Psychiatric/Mental Health
DX: F41.1 Generalized anxiety disorder (principal); F90.2 Attention-deficit hyperactivity disorder, combined type
CPT/HCPCS: 99214

== ENCOUNTER → 2025-03-01 11:33 | Outpatient (BNVA) | payer BC, SELFPAY | PROVIDERS: PCP Internal Medicine Endocrinology, Diabetes & Metabolism; Visit Provider Clinical Nurse Specialist Psychiatric/Mental Health ==

== ENCOUNTER 2025-03-29 13:29 | Outpatient (AMB) | payer BC, SELFPAY ==
--- NOTE | 2025-03-29 11:43 | A.OFFPSYCH_ITS ---
Intake Intake Visit Reasons: Depression Allergies Sulfa (Sulfonamide Antibiotics) Allergy (Intermediate, Unverified 02/17/24 10:30) Rash epinephrine Adverse Reaction (Unknown, Verified 02/17/24 10:30) rash Medication List - Last Reconciled 03/29/25 by Taty Bingham APRN citalopram 40 mg PO DAILY clonazepam 0.5 mg PO BID PRN hydroxyzine HCl 25 mg PO QID PRN methylphenidate HCl 10 mg PO BID 30 days methylphenidate HCl ER (Concerta) 27 mg PO QAM HPI- Psychiatric Chief Complaint: Depression HPI Narrative: pt seen via telehealth for follow up of anxiety and ADHD pt tolerating concerta well pt reports much improved. no side effects much less overwhelmed and less anxious no medical changes Past Psychiatric History: In therapy for 20 + yrs. On meds currently2 serious depressive episodes- first episode of depression at age 19 when father . then again at age 38 then again at age 48. For years, used keeping busy to manage anxiety. As getting older doesn't want to use busyness to cope; she would like to be able to relax more often and do leisure activities. Depression at age 38 - couldn't work, no energy, cried all the time, sad, no motivation. Had a very bad work situation at the time No IPLOC, no PHP or IOP. Subjective Subjective Subjective Medication Compliance: Yes Side effects from medications: No Review of Systems Medical Review of Systems: unchanged Mental Status Exam Mental Status Exam Patient Appearance: Well Grooomed and Appropriate Patient Orientation: Person, Place, Time and Situation Level of Consciousness: Awake and Alert Patient Behavior: Appropriate and Cooperative Mood Description: Happy, Appropriate and Cheerful Affect Description: Happy and Cheerful Patient Cognition Impaired: No Ability to Follow Directions: Good Speech Pattern: Clear and Coherent Memory Description: Intact Hallucinations: None Delusions: Not Present Thought Process: Intact and Goal Oriented Thought Content: positive for Intact and positive for Goal Oriented Judgement: Good Telehealth Telehealth Telehealth Platform: Other (please specify) ([email or web address]) Location of provider rendering services: practice address Location of patient: address on file Patient Identification confirmed using: Name, : Yes Telehealth method: video Patient verbally consented to treatment: Yes Patient verbally consented to billing insurance company: Yes Patient informed of any privacy concerns related to visit: Yes Minutes spent on Phone/Video with Pt.: 25 Assessment and Plan Assessment & Plan (1) ADHD (attention deficit hyperactivity disorder): Status: Acute Qualifiers: Attention deficit-hyperactivity disorder type: combined inattentive- hyperactive Qualified Code(s): F90.2 - Attention-deficit hyperactivity disorde r, combined type Code(s): F90.9 - Attention-deficit hyperactivity disorder, unspecified type (2) EVERTON (generalized anxiety disorder): Status: Acute Code(s): F41.1 - Generalized anxiety disorder Plan continue meds as per below retun in 2 months for follow up Medications: Refilled clonazepam 0.5 mg PO BID PRN 60 tabs 0RF anxiety methylphenidate HCl ER (Concerta) Partial Fill upon patient request. 27 mg PO QAM 30 tabs 0RF ADHD F90.2 - Attention-deficit hyperactivity disorder, combined type citalopram 40 mg PO DAILY 90 tabs 1RF methylphenidate HCl 10 mg PO BID 60 tabs 0RF 30 days Counseling and coordination of Care Pt. Self Management counseling: Maintenance-social rhythm, Mod caffeine/ETOH intake, Nutrition education and improvement and General coping skills Medication management counseling: Effectiveness, Side effects, Dosing range, Duration, Drug interaction and Adherence Diagnosis and Prognosis Counseling: Accuracy of diagnosis, Prognosis over time, Impact of diagnosis on life functions, Impact of family relationship, Problematic behaviors secondary to diagnosis and Adequacy of current interventions Details: I spent 35 minutes reviewing the record, seeing the patient and documenting in the medical record. Counseling provided to the patient/caregiver as outlined below. Addressed pat ient/caregiver concerns regarding current medication regime including effective adherence. Addressed patient/caregiver concerns regarding diagnosis and prognosis including accuracy of diagnosis, prognosis over time, impact of diagnosis. Addressed patient/caregiver concerns regarding impact of recent stressors. 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
--- OUTSIDE RECORDS SUMMARY | 2025-03-29 14:54 | XMS_ITS | Continuity of Care Document ---
Author Organization [facility] Address [address] [place] [address], [place] [address]- Care Team Providers Care Reconditioner Name Role Phone Betty Lorenzana MD, Nessa Perkins Primary Care Physic olga Encounter [facility] [place] Date(s): 02/22/25 - 03/24/25 [facility] [address], [address] [place] [id number] Attending Physician: Tayo Nixon Admitting Physician: Tayo Nixon Referring Physician: Tayo Nixon Encounter Type: Triage Allergies, Adverse Reactions, Alerts Substance Criticality Severity Reaction Reaction Severity Status sulfADIAZINE swell Active epinephrine light headedness A ctive Medications Atarax Tablet By Mouth, 4 times a day, 0 Refills, Maintenance, 02/22/25 9:56:00 AM EDT, Partial fill upon patient request if the prescription is for a schedule II opioid drug. Start Date: 02/22/25 Status: Ordered Repeat number: 1 buPROPion 100 mg oral tablet 1 tablet = 100 mg, By Mouth, Daily, 0 Refills, Maintenance, 04/02/21 5:01:00 PM EDT, Partial fill upon patient request if the prescription is for a schedule II opioid drug. Start Date: 04/02/21 Status: Ordered Repeat number: 1 citalopram 40 mg oral tablet 40 mg, 1, tablet, By Mouth, Daily, # 30 tablet, Refills 0, Maintenance, 04/02/21 5:01:00 PM EDT, Partial fill upon patient request if the prescription is for a schedule II opioid drug. Start Date: 04/02/21 Status: Ordered Quantity: 30.0 Unit: tablet Repeat number: 1 clonazePAM 0.5 mg oral tablet 1 tablet = 0.5 mg, By Mouth, 3 times a day, 0 Refills, Maintenance, 04/02/21 5:02:00 PM EDT, Tablet, Partial fill upon patient request if the prescription is for a schedule II opioid drug. Start Date: 04/02/21 Status: Ordered Repeat number: 1 Problem List Condition Confirmation Course Effective Dates Status Health St atus Informant Anxiety Confirmed Active Depression Confirmed Active Social History Social History Type Response Smoking Status Never (less than 100 in lifetime) entered on: 02/22/25 Sex Sex Representation Female (finding) Patient Care team information Care Team Personnel Name: Nessa Steen MD Position: [facility] Physician - Endocrinology Member Role: PCP Address: [address] [place] [address] [facility] [address] Telecom: Care Team Related Persons Name: JUWAN LOUIS Name: RAJEEV COX Insurance Providers Guarantor name: JASON COX Health Plan Information #: 1 Payer: HMO BLUE IN NETWORK Member Number: NA Policy Number: NA Group Number: NA
--- OUTSIDE RECORDS SUMMARY | 2025-03-29 14:55 | XMS_ITS | Continuity of Care Document ---
Author Organization [facility] [address] [facility] [address] [place] [address] Phone [phone] Care Team Providers Care Correspondence Representative Name Role Phone Nessa Holley M.D. Care Team Informati on [employer] Tender [phone] Problems Active Problems Provider Date Anxiety Nessa [...] Qnty Indications Order ing Provider Date Citalopram [id number] Tablets 1 qd Unknown Methylphenidate [id number] Tablets 1 bid Unknown Clonazepam0.5mg Tablets 1 tab by mouth every 8 hours as needed 30tabs Nessa Holley M.D. [id number] Capsules DR 1 by mouth bid prn 90caps Nessa Holley M.D. Vitamin [id number] (1999 Ut) Capsules 1 by mouth every day Nessa Holley M.D. Hydroxyzine [id number] Tablets take 1 tablet by mouth daily as needed Unknown Vital Signs Date Vital Result Comment 08/04/2024 10:51am Weight 172.00 lb Results Test Acquired Date Facility Test Result H/L Range Note Lipid Panel 08/28/2024 [facility] Cholesterol, Total 239 mg/dL High 100-199 Triglycerides 87 mg/dL 0-149 HDL Cholesterol 86 mg/dL >39 VLDL Cholesterol Avery 15 mg/dL 5-40 LDL Chol Calc ([facility]) 138 mg/dL High 0-99 LDL Calc Comment: TNP Urinalysis, Complete 08/28/2024 [facility] Specific [place] 1.016 1.005-1.0 30 pH 8.0 High 5.0-7.5 [...] 0-32 TSH With Reflex To FT4 08/10/2023 [facility] TSH With Reflex To FT4 5.05 uIU/mL High (0.4-4.2) Free T4 08/10/2023 [facility] Free T4 0.93 ng/dL (0.70-1.8 0) 25Oh Vitamin D 08/10/2023 [facility] 25Oh Vitamin D 41.4 NG/ML (20-50) Urinalysis Complete 08/10/2023 [facility] Appear/Color LIGHT YELLOW 5 SP. [place] 1.015 (1.002-1. 030) Urine PH 6.5 (5.0-8.0) Urine Albumin NEGATIVE (Neg) Urine Glucose NEGATIVE (Neg) Urine Ketones NEGATIVE (Neg) Urine Bilirubin NEGATIVE (Neg) Urine Hemoglobin TRACE Abnormal (Neg) Urine Nitrite NEGATIVE (Neg) Urine Leukocyte NEGATIVE (Neg) Urobilinogen NORMAL mg/dL (Norm) Urine WBCs NONE SEEN /HPF (0-5) Urine RBCs 1 /HPF (0-3) Squamous Epith 1 /HPF (0-8) Complete Abc With Diff 08/10/2023 [facility] WBC 4.5 K/MM3 (4.0-11.0 [...] K/MM3 (1.3-7.0) Lymph # 1.3 K/MM3 (0.8-3.1) Lake# 0.5 K/MM3 (0.4-0.9) Eo # 0.5 K/MM3 High (0.0-0.4) Baso # 0.0 K/MM3 (0.0-0.1) Abs. Imm Gran 0.0 K/MM3 Neut 48.1 % (44-76) Lymph 29.7 % (15-43) Monocyte 11.2 % High (4.5-10.5 ) Eo 10.6 % High (0-6) Baso 0.2 % (0-2) Imm Gran 0.2 % Lipid Panel 08/10/2023 [facility] Cholesterol, Total 256 mg/dL High (<200) Triglyceride 59 mg/dL (<150) HDL Chol 99 mg/dL (>39) LDL Cholesterol, Calculated 145 mg/dL High (0-130) Non HDL Cholesterol (Calc) 157 mg/dL (<160) Comprehensive Metabolic Panl 08/10/2023 [facility] Glucose 99 mg/dL (70-99) [...] 69 ML/MIN/1.73 M2 6 Urinalysis Complete 12/19/2022 [facility] Appear/Color LIGHT YELLOW 7 SP. [place] 1.008 (1.002-1. 030) Urine PH 6.5 (5.0-8.0) [...] Epith 1 /HPF (0-8) Culture Urine 12/19/2022 [facility] Specimen Description CLEAN CATCH (URI <SEE NOTE> 8 Special Requests NONE Culture Mixed bacterial <SEE NOTE> 9 Report Status FINAL 12/21/2022 10 Comprehensive Metabolic Panl 08/07/2022 [facility] Glucose 93 mg/dL (70-99) [...] 78 ML/MIN/1.73 M2 11 Lipid Panel 08/07/2022 [facility] Cholesterol, Total 263 mg/dL High (<200) Triglyceride 71 mg/dL (<150) HDL Chol 86 mg/dL (>39) LDL Cholesterol, Calculated 163 mg/dL High (0-130) Non HDL Cholesterol (Calc) 177 mg/dL High (<160) Urinalysis Complete 08/07/2022 [facility] Appear/Color LIGHT YELLOW 12 SP. [place] 1.014 (1.002-1. 030) Urine PH 7.5 (5.0-8.0) Urine Albumin NEGATIVE (Neg) Urine Glucose NEGATIVE (Neg) Urine Ketones NEGATIVE (Neg) Urine Bilirubin NEGATIVE (Neg) Urine Hemoglobin NEGATIVE (Neg) Urine Nitrite NEGATIVE (Neg) Urine Leukocyte NEGATIVE (Neg) Urobilinogen NORMAL mg/dL (Norm) Urine WBCs 1 /HPF (0-5) Urine RBCs 1 /HPF (0-3) Squamous Epith <1 /HPF (0-8) Hemoglobin A1c 08/07/2022 [facility] Hemoglobin A1c 5.6 % (4.0-5.6) 13 Complete Abc With Diff 08/07/2022 [facility] WBC 5.0 K/MM3 (4.0-11.0 [...] K/MM3 (1.3-7.0) Lymph # 1.2 K/MM3 (0.8-3.1) Lake# 0.6 K/MM3 (0.4-0.9) Eo # 0.8 K/MM3 High (0.0-0.4) Baso # 0.0 K/MM3 (0.0-0.1) Abs. Imm Gran 0.0 K/MM3 Neut 48.0 % (44-76) Lymph 23.1 % (15-43) Monocyte 12.0 % High (4.5-10.5 ) Eo 15.9 % High (0-6) Baso 0.6 % (0-2) Imm Gran 0.4 % TSH With Reflex To FT4 08/07/2022 [facility] TSH With Reflex To FT4 3.57 uIU/mL (0.4-4.2) 1 Microscopic follows if indicated. 2 Microscopic was avtar cated and was performed. 3 Vitamin D deficiency has been defined by the Olive of Medicine and an Endocrine Society practice guideline as a level of serum 25-OH vitamin D less than 20 ng/mL (1,2). The Endocrine Society went on to further define vitamin D insufficiency as a level between 21 and 29 ng/mL (2). 1. IOM (Olive of Medicine). 2010. Dietary reference intakes for calcium and D. [place]: The National [employer]. 2. Ryan MF, Herbert PRICE, Emil [...] with health care provider. DIAGNOSTIC USE: The [place] Diabetes Association (ADA) and the World Health [...] 1 Procedures Date Code Description Status 08/02/2023 10882 Collection Of Venous Blood B y Venipuncture [...] Shahnaz Felder MD Closed [address] [place] [address] [phone] [facility] Rotary Operator 10 YEAR COLONOSCOPY Closed 01/20/[address] [place] [address] [phone] Jailyn Garvey PA Closed [address] [place] [address] [phone] Shahnaz Felder MD Closed [address] [place] [address] [phone]
== END 2025-03-29 13:29 | disposition home or self-care (01) ==
LOC: HO.HOP 13:29
PROVIDERS: PCP Internal Medicine Endocrinology, Diabetes & Metabolism; Visit Provider Clinical Nurse Specialist Psychiatric/Mental Health
DX: F90.2 Attention-deficit hyperactivity disorder, combined type (principal); F41.1 Generalized anxiety disorder
CPT/HCPCS: 99214

== ENCOUNTER 2025-05-31 11:28 | Outpatient (AMB) | payer BC, SELFPAY ==
--- NOTE | 2025-05-31 11:12 | A.OFFPSYCH_ITS ---
Intake Intake Visit Reasons: Depression Allergies Sulfa (Sulfonamide Antibiotics) Allergy (Intermediate, Unverified 02/17/24 10:30) Rash epinephrine Adverse Reaction (Unknown, Verified 02/17/24 10:30) rash Medication List - Last Reconciled 05/31/25 by Taty Bingham APRN citalopram 40 mg PO DAILY clonazepam 0.5 mg PO BID PRN hydroxyzine HCl 25 mg PO QID PRN methylphenidate HCl 10 mg PO BID 30 days methylphenidate HCl ER (Concerta) 27 mg PO QAM HPI- Psychiatric Chief Complaint: Depression HPI Narrative: pt seen via telehealth for follow up of anxiety and ADHD pt tolerating medications without side effects. pt reports increased anxiety due to increased activities and demands. Pt reports feeling overwhelmed at times and unable to relax pt reports sleep difficulties; taking concerta at 7 am or earlier. pt reports stress from mother in hospital for short period, more interaction with family which is good but creates anxiety for pt pts home more often and they are negotiating activities and space. pt denies SI or HI no medical changes Past Psychiatric History: In therapy for 20 + yrs. On meds currently2 serious depressive episodes- first episode of depression at age 19 when father . then again at age 38 then again at age 48. For years, used keeping busy to manage anxiety. As getting older doesn't want to use busyness to cope; she would like to be able to relax more often and do leisure activities. Depression at age 38 - couldn't work, no energy, cried all the time, sad, no motivation. Had a very bad work situation at the time No IPLOC, no PHP or IOP. Subjective Subjective Subjective Medication Compliance: Yes Side effects from medications: No Review of Systems Medical Review of Systems: unchanged Mental Status Exam Mental Status Exam Patient Appearance: Well Grooomed and Appropriate Patient Orientation: Person, Place, Time and Situation Level of Consciousness: Awake and Alert Patient Behavior: Appropriate and Cooperative Mood Description: Happy, Appropriate and Anxious Affect Description: Happy and Anxious Patient Cognition Impaired: No Ability to Follow Directions: Good Speech Pattern: Clear and Coherent Memory Description: Intact Hallucinations: None Delusions: Not Present Thought Process: Intact and Goal Oriented Thought Content: positive for Intact and positive for Goal Oriented Judgement: Good Telehealth Telehealth Telehealth Platform: Other (please specify) ([email or web address]) Location of provider rendering services: practice address Location of patient: address on file Patient Identification confirmed using: Name, : Yes Telehealth method: video Patient verbally consented to treatment: Yes Patient verbally consented to billing insurance company: Yes Patient informed of any privacy concerns related to visit: Yes Minutes spent on Phone/Video with Pt.: 25 Assessment and Plan Assessment & Plan (1) EVERTON (generalized anxiety disorder): Status: Acute Code(s): F41.1 - Generalized anxiety disorder (2) ADHD (attention deficit hyperactivity disorder): Status: Acute Qualifiers: Attention deficit-hyperactivity disorder type: combined inattentive- hyperactive Qualified Code(s): F90.2 - Attention-deficit hyperactivity disorder, combined type Code(s): F90.9 - Attention-deficit hyperactivity disorder, unspecified type Plan continue meds below and clonazepam 0.5mg bid prn anxiety follow up in 2 months Medications: Refilled methylphenidate HCl ER (Concerta) Partial Fill upon patient request. 27 mg PO QAM 30 tabs 0RF ADHD F90.2 - Attention-deficit hyperactivity disorder, combined type citalopram 40 mg PO DAILY 90 tabs 1RF hydroxyzine HCl 25 mg PO QID PRN 120 tabs 2RF itching methylphenidate HCl 10 mg PO BID 60 tabs 0RF 30 days Counseling and coordination of Care Pt. Self Management counseling: Maintenance-social rhythm, Mod caffeine/ETOH intake, Nutrition education and improvement and General coping skills Medication management counseling: Effectiveness, Side effects, Dosing range, Duration, Drug interaction and Adherence Diagnosis and Prognosis Counseling: Accuracy of diagnosis, Prognosis over time, Impact of diagnosis on life functions, Impact of family relationship, Problematic behaviors secondary to diagnosis and Adequacy of current interventions Details: I spent 30 minutes reviewing the record, seeing the patient and documenting in the medical record. Counseling provided to the patient/caregiver as outlined below. Addressed patient/caregiver concerns regarding current medication regime including effective adherence. Addressed patient/caregiver concerns regarding diagnosis and prognosis including accuracy of diagnosis, prognosis over time, impact of diagnosis. Addressed patient/caregiver concerns regarding impact of recent stressors. 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
--- OUTSIDE RECORDS SUMMARY | 2025-05-31 12:23 | XMS_ITS | Continuity of Care Document ---
Author Organization [facility] Address [address] [place] [address] Phone [phone] Care Team Providers Care Eyeglass Frames Polisher Name Role Phone Nessa Holley M.D. Care Team Informati on Tip Banding Machine Operator [phone] Problems Active Problems Provider Date Anxiety Nessa [...] Social History Type Date Description Comments Sex Female Sex Unknown Lives With Spouse Occupation Teacher Work Status Retired Tobacco Use Start: Unknown Never Smoked Cigarettes ETOH Use Occasionally consumes wine Allergies and adverse reactions Active Allergies Criticality Reaction Severity Comments Date Sulfamethizole Unable to assess criticality 08/01/2022 Epinephrine Unable to assess criticality 08/01/2022 Medications Active Medications SIG Qnty Indications Order ing Provider Date Citalopram [id number] Tablets 1 qd Unknown Methylphenidate [id number] Tablets 1 bid Unknown Clonazepam0.5mg Tablets 1 tab by mouth every 8 hours as needed 30tabs Nessa Holley M.D. [id number] Capsules DR 1 by mouth bid prn 90caps Nessa Holley M.D. Vitamin [id number] (1999 [place]) Capsules 1 by mouth every day Nessa Holley M.D. Hydroxyzine [id number] Tablets take 1 tablet by mouth daily as needed Unknown Vital Signs Date Vital Result Comment 08/04/2024 10:51am Weight 172.00 lb Results Test Acquired Date Facility Test Result H/L Range Note Lipid Panel 08/28/2024 [facility] Cholesterol, Total 239 mg/dL High 100-199 Triglycerides 87 mg/dL 0-149 HDL Cholesterol 86 mg/dL >39 VLDL Cholesterol Avery 15 mg/dL 5-40 LDL Chol Calc ([facility]) 138 mg/dL High 0-99 LDL Calc Comment: TNP Urinalysis, Complete 08/28/2024 [facility] Specific [place] 1.016 1.005-1.0 30 pH 8.0 High 5.0-7.5 [...] 1.4-7.0 Lymphs (Absolute) 1.3 x10E3/uL 0.7-3.1 Monocytes(Absol [place]) 0.4 x10E3/uL 0.1-0.9 Eos (Absolute) 0.3 x10E3/uL [...] 0-32 TSH With Reflex To FT4 08/10/2023 [facility] TSH With Reflex To FT4 5.05 uIU/mL High (0.4-4.2) Free T4 08/10/2023 [facility] Free T4 0.93 ng/dL (0.70-1.8 0) 25Oh Vitamin D 08/10/2023 [facility] 25Oh Vitamin D 41.4 NG/ML (20-50) Urinalysis Complete 08/10/2023 [facility] Appear/Color LIGHT YELLOW 5 SP. [place] 1.015 (1.002-1. 030) Urine PH 6.5 (5.0-8.0) Urine Albumin NEGATIVE (Neg) Urine Glucose NEGATIVE (Neg) Urine Ketones NEGATIVE (Neg) Urine Bilirubin NEGATIVE (Neg) Urine Hemoglobin TRACE Abnormal (Neg) Urine Nitrite NEGATIVE (Neg) Urine Leukocyte NEGATIVE (Neg) Urobilinogen NORMAL mg/dL (Norm) Urine WBCs NONE SEEN /HPF (0-5) Urine RBCs 1 /HPF (0-3) Squamous Epith 1 /HPF (0-8) Complete Abc With Diff 08/10/2023 [facility] WBC 4.5 K/MM3 (4.0-11.0 [...] K/MM3 (1.3-7.0) Lymph # 1.3 K/MM3 (0.8-3.1) [place]# 0.5 K/MM3 (0.4-0.9) Eo # 0.5 K/MM3 High (0.0-0.4) Baso # 0.0 K/MM3 (0.0-0.1) Abs. Imm Gran 0.0 K/MM3 Neut 48.1 % (44-76) Lymph 29.7 % (15-43) Monocyte 11.2 % High (4.5-10.5 ) Eo 10.6 % High (0-6) Baso 0.2 % (0-2) Imm Gran 0.2 % Lipid Panel 08/10/2023 [facility] Cholesterol, Total 256 mg/dL High (<200) Triglyceride 59 mg/dL (<150) HDL Chol 99 mg/dL (>39) LDL Cholesterol, Calculated 145 mg/dL High (0-130) Non HDL Cholesterol (Calc) 157 mg/dL (<160) Comprehensive Metabolic Panl 08/10/2023 [facility] Glucose 99 mg/dL (70-99) [...] 69 ML/MIN/1.73 M2 6 Urinalysis Complete 12/19/2022 [facility] Appear/Color LIGHT YELLOW 7 SP. [place] 1.008 (1.002-1. 030) Urine PH 6.5 (5.0-8.0) [...] Epith 1 /HPF (0-8) Culture Urine 12/19/2022 [facility] Specimen Description CLEAN CATCH (URI <SEE NOTE> 8 Special Requests NONE Culture Mixed bacterial <SEE NOTE> 9 Report Status FINAL 12/21/2022 10 Comprehensive Metabolic Panl 08/07/2022 [facility] Glucose 93 mg/dL (70-99) [...] 78 ML/MIN/1.73 M2 11 Lipid Panel 08/07/2022 [facility] Cholesterol, Total 263 mg/dL High (<200) Triglyceride 71 mg/dL (<150) HDL Chol 86 mg/dL (>39) LDL Cholesterol, Calculated 163 mg/dL High (0-130) Non HDL Cholesterol (Calc) 177 mg/dL High (<160) Urinalysis Complete 08/07/2022 [facility] Appear/Color LIGHT YELLOW 12 SP. [place] 1.014 (1.002-1. 030) Urine PH 7.5 (5.0-8.0) Urine Albumin NEGATIVE (Neg) Urine Glucose NEGATIVE (Neg) Urine Ketones NEGATIVE (Neg) Urine Bilirubin NEGATIVE (Neg) Urine Hemoglobin NEGATIVE (Neg) Urine Nitrite NEGATIVE (Neg) Urine Leukocyte NEGATIVE (Neg) Urobilinogen NORMAL mg/dL (Norm) Urine WBCs 1 /HPF (0-5) Urine RBCs 1 /HPF (0-3) Squamous Epith <1 /HPF (0-8) Hemoglobin A1c 08/07/2022 [facility] Hemoglobin A1c 5.6 % (4.0-5.6) 13 Complete Abc With Diff 08/07/2022 [facility] WBC 5.0 K/MM3 (4.0-11.0 [...] K/MM3 (1.3-7.0) Lymph # 1.2 K/MM3 (0.8-3.1) [place]# 0.6 K/MM3 (0.4-0.9) Eo # 0.8 K/MM3 High (0.0-0.4) Baso # 0.0 K/MM3 (0.0-0.1) Abs. Imm Gran 0.0 K/MM3 Neut 48.0 % (44-76) Lymph 23.1 % (15-43) Monocyte 12.0 % High (4.5-10.5 ) Eo 15.9 % High (0-6) Baso 0.6 % (0-2) Imm Gran 0.4 % TSH With Reflex To FT4 08/07/2022 [facility] TSH With Reflex To FT4 3.57 uIU/mL (0.4-4.2) 1 Microscopic follows if indicated. 2 Microscopic was avtar cated and was performed. 3 Vitamin D deficiency has been defined by the [place] of Medicine and an Endocrine Society practice guideline as a level of serum 25-OH vitamin D less than 20 ng/mL (1,2). The Endocrine Society went on to further define vitamin D insufficiency as a level between 21 and 29 ng/mL (2). 1. IOM ([place] of Medicine). 2010. Dietary reference intakes for calcium and D. [place]: The National [employer]. 2. Ryan MF, Herbert PRICE, Emil [...] with health care provider. DIAGNOSTIC USE: The [place] Diabetes Association (ADA) and the World Health [...] 1 Procedures Date Code Description Status 08/02/2023 88635 Collection Of Venous Blood B y Venipuncture [...] Felder MD Closed [address] [place] [address] [phone] [facility] Mail Truck Driver 8 YEAR COLONOSCOPY Closed 01/20/[address] [place] [address] [phone] Jailyn Garvey PA Closed [address] [place] [address] [phone] Shahnaz Felder MD Closed [address] [place] [address] [phone]
== END 2025-05-31 11:29 | disposition home or self-care (01) ==
LOC: HO.HOP 11:28
PROVIDERS: PCP Internal Medicine Endocrinology, Diabetes & Metabolism; Visit Provider Clinical Nurse Specialist Psychiatric/Mental Health
DX: F41.1 Generalized anxiety disorder (principal); F90.2 Attention-deficit hyperactivity disorder, combined type
CPT/HCPCS: 99214

== ENCOUNTER 2025-08-10 13:03 | Outpatient (AMB) | payer BC, SELFPAY ==
--- NOTE | 2025-08-10 11:56 | A.OFFPSYCH_ITS ---
Intake Intake Visit Reasons: depression Supervisor Uranium Processing Required: No Allergies Sulfa (Sulfonamide Antibiotics) Allergy (Intermediate, Unverified 02/17/24 10:30) Rash epinephrine Adverse Reaction (Unknown, Verified 02/17/24 10:30) rash Medication List - Last Reconciled 08/10/25 by Taty Bingham APRN citalopram 40 mg PO DAILY clonazepam 0.5 mg PO BID PRN hydroxyzine HCl 25 mg PO QID PRN methylphenidate HCl 10 mg PO BID 30 days methylphenidate HCl ER (Concerta) 27 mg PO QAM HPI- Psychiatric Chief Complaint: depression HPI Narrative: pt seen via telehealth for follow up of depression,anxiety and ADHD pt tolerating medications without side effects. pt reports increased depression and anxiety due to increased activities and demands. Coflict with son and his family leadin to alienation from them and granchild. Pt reports feeling overwhelmed at times and unable to relax pts home more often and they are negotiating activities and space. pt denies SI or HI no medical changes Past Psychiatric History: In therapy for 20 + yrs. On meds currently2 serious depressive episodes- first episode of depression at age 19 when father . then again at age 38 then again at age 48. For years, used keeping busy to manage anxiety. As getting older doesn't want to use busyness to cope; she would like to be able to relax more often and do leisure activities. Depression at age 38 - couldn't work, no energy, cried all the time, sad, no motivation. Had a very bad work situation at the time No IPLOC, no PHP or IOP. Subjective Subjective Subjective Medication Compliance: Yes Side effects from medications: No Review of Systems Medical Review of Systems: unchanged Mental Status Exam Mental Status Exam Patient Appearance: Well Grooomed and Appropriate Patient Orientation: Person, Place, Time and Situation Level of Consciousness: Awake and Alert Patient Behavior: Appropriate and Cooperative Mood Description: Happy, Appropriate and Anxious Affect Description: Happy and Anxious Patient Cognition Impaired: No Ability to Follow Directions: Good Speech Pattern: Clear and Coherent Memory Description: Intact Hallucinations: None Delusions: Not Present Thought Process: Intact and Goal Oriented Thought Content: positive for Intact and positive for Goal Oriented Judgement: Good Telehealth Telehealth Telehealth Platform: Other (please specify) ([email or web address]) Location of provider rendering services: practice address Location of patient: address on file Patient Identification confirmed using: Name, : Yes Telehealth method: video Patient verbally consented to treatment: Yes Patient verbally consented to billing insurance company: Yes Patient informed of any privacy concerns related to visit: Yes Minutes spent on Phone/Video with Pt.: 25 Assessment and Plan Assessment & Plan (1) EV[place] (generalized anxiety disorder): Status: Acute Code(s): F41.1 - Generalized anxiety disorder (2) ADHD (attention deficit hyperactivity disorder): Status: Acute Qualifiers: Attention deficit-hyperactivity disorder type: combined inattentive-hy peractive Qualified Code(s): F90.2 - Attention-deficit hyperactivity disorder, combined type Code(s): F90.9 - Attention-deficit hyperactivity disorder, unspecified type Plan decrease celexa to 20mg and start prozac 20mg in one week stop celexa and continue with the prozac continue concerta, hydroxyzine and and clonazepam 0.5mg bid prn anxiety follow up in 4 weeks Medications: New fluoxetine (Prozac) 20 mg PO DAILY 30 caps 0RF Counseling and coordination of Care Pt. Self Management counseling: Maintenance-social rhythm, Mod caffeine/ETOH intake, Nutrition education and improvement and General coping skills Medication management counseling: Effectiveness, Side effects, Dosing range, Duration, Drug interaction and Adherence Diagnosis and Prognosis Counseling: Accuracy of diagnosis, Prognosis over time, Impact of diagnosis on life functions, Impact of family relationship, Pr oblematic behaviors secondary to diagnosis and Adequacy of current interventions Details: I spent 35 minutes reviewing the record, seeing the patient and documenting in the medical record. Counseling provided to the patient/caregiver as outlined below. Addressed patient/caregiver concerns regarding current medication regime including effective adherence. Addressed patient/caregiver concerns regarding diagnosis and prognosis including accuracy of diagnosis, prognosis over time, impact of diagnosis. Addressed patient/caregiver concerns regarding impact of recent stressors. 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
--- OUTSIDE RECORDS SUMMARY | 2025-08-10 16:59 | XMS_ITS | Continuity of Care Document ---
Author Organization [facility] [address] [place] [address] Phone [phone] Care Team Providers Care Stave Hewer Name Role Phone Nessa Holley M.D. Care Team Informati on Pallet Assembler [phone] Problems Active Problems Provider Date Anxiety Nessa [...] Qnty Indications Order ing Provider Date Citalopram [id number] Tablets 1 qd Unknown Methylphenidate [id number] Tablets 1 bid Unknown Clonazepam0.5mg Tablets 1 tab by mouth every 8 hours as needed 30tabs Nessa Holley M.D. Iibumoxnji06en Capsules DR 1 by mouth bid prn 90caps Nessa Holley M.D. Vitamin [id number] (1999 Fl) Capsules 1 by mouth every day Nessa Holley M.D. Hydroxyzine AMT32yu Tablets take 1 tablet by mouth daily as needed Unknown Vital Signs Date Vital Result Comment 08/04/2024 10:51am Weight 172.00 lb Results Test Acquired Date Facility Test Result H/L Range Note Lipid Panel 08/28/2024 [facility] Cholesterol, Total 239 mg/dL High 100-199 Triglycerides 87 mg/dL 0-149 HDL Cholesterol 86 mg/dL >39 VLDL Cholesterol Avery 15 mg/dL 5-40 LDL Chol Calc ([facility]) 138 mg/dL High 0-99 LDL Calc Comment: TNP Urinalysis, Complete 08/28/2024 [facility] Specific [place] 1.016 1.005-1.0 30 pH 8.0 High 5.0-7.5 [...] 0-32 TSH With Reflex To FT4 08/10/2023 [facility] TSH With Reflex To FT4 5.05 uIU/mL High (0.4-4.2) Free T4 08/10/2023 [facility] Free T4 0.93 ng/dL (0.70-1.8 0) 25Oh Vitamin D 08/10/2023 [facility] 25Oh Vitamin D 41.4 NG/ML (20-50) Urinalysis Complete 08/10/2023 [facility] Appear/Color LIGHT YELLOW 5 SP. [place] 1.015 (1.002-1. 030) Urine PH 6.5 (5.0-8.0) Urine Albumin NEGATIVE (Neg) Urine Glucose NEGATIVE (Neg) Urine Ketones NEGATIVE (Neg) Urine Bilirubin NEGATIVE (Neg) Urine Hemoglobin TRACE Abnormal (Neg) Urine Nitrite NEGATIVE (Neg) Urine Leukocyte NEGATIVE (Neg) Urobilinogen NORMAL mg/dL (Norm) Urine WBCs NONE SEEN /HPF (0-5) Urine RBCs 1 /HPF (0-3) Squamous Epith 1 /HPF (0-8) Complete Abc With Diff 08/10/2023 [facility] WBC 4.5 K/MM3 (4.0-11.0 [...] K/MM3 (1.3-7.0) Lymph # 1.3 K/MM3 (0.8-3.1) [place]# 0.5 K/MM3 (0.4-0.9) Eo # 0.5 K/MM3 High (0.0-0.4) Baso # 0.0 K/MM3 (0.0-0.1) Abs. Imm Gran 0.0 K/MM3 Neut 48.1 % (44-76) Lymph 29.7 % (15-43) Monocyte 11.2 % High (4.5-10.5 ) Eo 10.6 % High (0-6) Baso 0.2 % (0-2) Imm Gran 0.2 % Lipid Panel 08/10/2023 [facility] Cholesterol, Total 256 mg/dL High (<200) Triglyceride 59 mg/dL (<150) HDL Chol 99 mg/dL (>39) LDL Cholesterol, Calculated 145 mg/dL High (0-130) Non HDL Cholesterol (Calc) 157 mg/dL (<160) Comprehensive Metabolic Panl 08/10/2023 [facility] Glucose 99 mg/dL (70-99) [...] 69 ML/MIN/1.73 M2 6 Urinalysis Complete 12/19/2022 [facility] Appear/Color LIGHT YELLOW 7 SP. [place] 1.008 (1.002-1. 030) Urine PH 6.5 (5.0-8.0) [...] Epith 1 /HPF (0-8) Culture Urine 12/19/2022 [facility] Specimen Description CLEAN CATCH (URI <SEE NOTE> 8 Special Requests NONE Culture Mixed bacterial <SEE NOTE> 9 Report Status FINAL 12/21/2022 10 Comprehensive Metabolic Panl 08/07/2022 [facility] Glucose 93 mg/dL (70-99) [...] 78 ML/MIN/1.73 M2 11 Lipid Panel 08/07/2022 [facility] Cholesterol, Total 263 mg/dL High (<200) Triglyceride 71 mg/dL (<150) HDL Chol 86 mg/dL (>39) LDL Cholesterol, Calculated 163 mg/dL High (0-130) Non HDL Cholesterol (Calc) 177 mg/dL High (<160) Urinalysis Complete 08/07/2022 [facility] Appear/Color LIGHT YELLOW 12 SP. [place] 1.014 (1.002-1. 030) Urine PH 7.5 (5.0-8.0) Urine Albumin NEGATIVE (Neg) Urine Glucose NEGATIVE (Neg) Urine Ketones NEGATIVE (Neg) Urine Bilirubin NEGATIVE (Neg) Urine Hemoglobin NEGATIVE (Neg) Urine Nitrite NEGATIVE (Neg) Urine Leukocyte NEGATIVE (Neg) Urobilinogen NORMAL mg/dL (Norm) Urine WBCs 1 /HPF (0-5) Urine RBCs 1 /HPF (0-3) Squamous Epith <1 /HPF (0-8) Hemoglobin A1c 08/07/2022 [facility] Hemoglobin A1c 5.6 % (4.0-5.6) 13 Complete Abc With Diff 08/07/2022 [facility] WBC 5.0 K/MM3 (4.0-11.0 [...] K/MM3 (1.3-7.0) Lymph # 1.2 K/MM3 (0.8-3.1) [place]# 0.6 K/MM3 (0.4-0.9) Eo # 0.8 K/MM3 High (0.0-0.4) Baso # 0.0 K/MM3 (0.0-0.1) Abs. Imm Gran 0.0 K/MM3 Neut 48.0 % (44-76) Lymph 23.1 % (15-43) Monocyte 12.0 % High (4.5-10.5 ) Eo 15.9 % High (0-6) Baso 0.6 % (0-2) Imm Gran 0.4 % TSH With Reflex To FT4 08/07/2022 [facility] TSH With Reflex To FT4 3.57 uIU/mL (0.4-4.2) 1 Microscopic follows if indicated. 2 Microscopic was avtar cated and was performed. 3 Vitamin D deficiency has been defined by the [place] of Medicine and an Endocrine Society practice guideline as a level of serum 25-OH vitamin D less than 20 ng/mL (1,2). The Endocrine Society went on to further define vitamin D insufficiency as a level between 21 and 29 ng/mL (2). 1. IOM ([place] of Medicine). 2010. Dietary reference intakes for calcium and D. [place]: The National [employer] Press. 2. Ryan MF, Herbert PRICE, Emil [...] with health care provider. DIAGNOSTIC USE: The [place] Diabetes Association (ADA) and the World Health [...] 1 Procedures Date Code Description Status 08/02/2023 96372 Collection Of Venous Blood B y Venipuncture [...] 08/04/2024 E78.00 Pure hypercholesterolemia, u nspecified Nessa Hloley M.D. 08/04/2024 E03.9 Hypothyroidism, unspecified Nessa Holley M.D. 08/04/2024 M85.80 Other specified disorders of bone density and structure, unspecified site Nessa Holley M.D. Plan of Treatment Future Appointment(s):* 09/24/2025 9:15 am - Nessa Holley M.D. at [...] to Reason for Referral Status Appt Mark Melinda Foley MD Closed [address] [place] [address] [phone] Shahnaz Felder MD Closed [address] [place] [address] [phone] [facility] Glass Loading Equipment Tender 8 YEAR COLONOSCOPY Closed 01/20/2024 [address] [place] [address] [phone] Jailyn Garvey PA Closed [address] [place] [address] [phone] Shahnaz Felder MD Closed [address] [place] [address] [phone]
== END 2025-08-10 13:04 | disposition home or self-care (01) ==
LOC: HO.HOP 13:03
PROVIDERS: PCP Internal Medicine Endocrinology, Diabetes & Metabolism; Visit Provider Clinical Nurse Specialist Psychiatric/Mental Health
DX: F41.1 Generalized anxiety disorder (principal); F90.2 Attention-deficit hyperactivity disorder, combined type
CPT/HCPCS: 99214

== ENCOUNTER 2025-09-09 13:54 | Outpatient (AMB) | payer BC, SELFPAY ==
--- NOTE | 2025-09-09 13:38 | A.OFFPSYCH_ITS ---
Intake Intake Visit Reasons: depression Campaign Developer Required: No Allergies Sulfa (Sulfonamide Antibiotics) Allergy (Intermediate, Unverified 02/17/24 10:30) Rash epinephrine Adverse Reaction (Unknown, Verified 02/17/24 10:30) rash Medication List - Last Reconciled 09/09/25 by Taty Bingham APRN clonazepam 0.5 mg PO BID PRN fluoxetine (Prozac) 20 mg PO DAILY hydroxyzine HCl 25 mg PO QID PRN methylphenidate HCl 10 mg PO BID 30 days methylphenidate HCl ER (Concerta) 27 mg PO QAM HPI- Psychiatric Chief Complaint: depression HPI Narrative: pt seen via telehealth for follow up of depression,anxiety and ADHD Pt started an old prescription of wellbutrin she had on hand- not rx for several years. ppt reports increased depression and anxiety due to increased conflict with son and his family leading to alienation from them and grandchild. Pt reports feeling overwhelmed at times and unable to relax pts home more often and they are negotiating activities and space. pt denies SI or HI no medical changes Past Psychiatric History: In therapy for 20 + yrs. On meds currently2 serious depressive episodes- first episode of depression at age 19 when father . then again at age 38 then again at age 48. For years, used keeping busy to manage anxiety. As getting older doesn't want to use busyness to cope; she would like to be able to relax more often and do leisure activities. Depression at age 38 - couldn't work, no energy, cried all the time, sad, no motivation. Had a very bad work situation at the time No IPLOC, no PHP or IOP. Subjective Subjective Subjective Medication Compliance: Yes Side effects from medications: No Review of Systems Medical Review of Systems: unchanged Mental Status Exam Mental Status Exam Patient Appearance: Well Grooomed and Appropriate Patient Orientation: Person, Place, Time and Situation Level of Consciousness: Awake and Alert Patient Behavior: Appropriate and Cooperative Mood Description: Happy, Appropriate and Anxious Affect Description: Happy and Anxious Patient Cognition Impaired: No Ability to Follow Directions: Good Speech Pattern: Clear and Coherent Memory Description: Intact Hallucinations: None Delusions: Not Present Thought Process: Intact and Goal Oriented Thought Content: positive for Intact and positive for Goal Oriented Judgement: Good Telehealth Telehealth Telehealth Platform: [facility] Location of provider rendering services: practice address Location of patient: address on file Patient Identification confirmed using: Name, : Yes Telehealth method: video Patient verbally consented to treatment: Yes Patient verbally consented to billing insurance company: Yes Patient informed of any privacy concerns related to visit: Yes Minutes spent on Phone/Video with Pt.: 25 Assessment and Plan Assessment & Plan (1) [place] (generalized anxiety disorder): Status: Acute Code(s): F41.1 - Generalized anxiety disorder (2) ADHD (attention deficit hyperactivity disorder): Status: Acute Qualifiers: Attention deficit-hyperactivity disorder type: combined inattentive- hyperactive Qualified Code(s): F90.2 - Attention-deficit hyperactivity disorder, combined type Code(s): F90.9 - Attention-deficit hyperactivity disorder, unspecified type Plan prozac 20mg Stop concerta continue hydroxyzine and and clonazepam 0.5mg bid prn anxiety follow up in 4 weeks Counseling and coordination of Care Pt. Self Management counseling: Maintenance-social rhythm, Mod caffeine/ETOH intake, Nutrition education and improvement and General coping skills Medication management counseling: Effectiveness, Side effects, Dosing range, Duration, Drug interaction and Adherence Diagnosis and Prognosis Counseling: Accuracy of diagnosis, Prognosis over time, Impact of diagnosis on life functions, Impact of family relationship, Problematic behaviors secondary to diagnosis and Adequacy of current interventions Details: I spent 35 minutes reviewing the record, seeing the patient and documenting in the medical record. Counseling provided to the patient/caregiver as outlined below. Addressed patient/caregiver concerns regarding current medication regime including effective adherence. Addressed patient/caregiver concerns regarding diagnosis and prognosis including accuracy of diagnosis, prognosis over time, impact of diagnosis. Addressed patient/caregiver concerns regarding impact of recent stressors. 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
== END 2025-09-09 14:07 | disposition home or self-care (01) ==
LOC: HO.HOP 13:54
PROVIDERS: PCP Internal Medicine Endocrinology, Diabetes & Metabolism; Visit Provider Clinical Nurse Specialist Psychiatric/Mental Health
DX: F41.1 Generalized anxiety disorder (principal); F90.2 Attention-deficit hyperactivity disorder, combined type
CPT/HCPCS: 99214

== ENCOUNTER 2025-10-04 14:33 | Outpatient (AMB) | payer BC, SELFPAY ==
--- NOTE | 2025-10-04 14:01 | MHC.OFFVISPS ---
Intake Intake Visit Reasons: depression Sales And Marketing Agent Required: No Allergies Sulfa (Sulfonamide Antibiotics) Allergy (Intermediate, Unverified 02/17/24 10:30) Rash epinephrine Adverse Reaction (Unknown, Verified 02/17/24 10:30) rash Medication List - Last Reconciled 10/04/25 by Taty Bingham APRN clonazepam 0.5 mg PO BID PRN fluoxetine (Prozac) 20 mg PO DAILY hydroxyzine HCl 25 mg PO QID PRN methylphenidate HCl 10 mg PO BID 30 days HPI- Psychiatric Chief Complaint: depression HPI Narrative: Pt seen via telehealth for follow up for depression,anxiety and ADHD In the interim, pt stopped the wellbutrin due to fears of serotonin syndrome pt reports increased depression and anxiety due to increased conflict with son and his family leading to alienation from them and grandchild. pt has been unable to explain her behavior that hurt her daughter in laws feelings. Pt reports feeling overwhelmed at times and unable to relax she does feel calmer and less anxious on the ritalin IR instead of the concerta. pts home more often and they are negotiating activities and space. pts mother is 97 and having medical issues pt denies SI or HI no medical changes Past Psychiatric History: In therapy for 20 + yrs. On meds currently2 serious depressive episodes- first episode of depression at age 19 when father . then again at age 38 then again at age 48. For years, used keeping busy to manage anxiety. As getting older doesn't want to use busyness to cope; she would like to be able to relax more often and do leisure activities. Depression at age 38 - couldn't work, no energy, cried all the time, sad, no motivation. Had a very bad work situation at the time No IPLOC, no PHP or IOP. Subjective Subjective Medication Compliance: Yes Side effects from medications: No Review of Systems Medical Review of Systems: unchanged Mental Status Exam Mental Status Exam Patient Appearance: Well Grooomed and Appropriate Patient Orientation: Person, Place, Time and Situation Level of Consciousness: Awake and Alert Patient Behavior: Appropriate and Cooperative Mood Description: Anxious (mild) and Sad Affect Description: Anxious and Sad Patient Cognition Impaired: No Ability to Follow Directions: Good Speech Pattern: Clear and Coherent Memory Description: Intact Hallucinations: None Delusions: Not Present Thought Process: Intact and Goal Oriented Thought Content: positive for Intact and positive for Goal Oriented Judgement: Good Telehealth Telehealth Telehealth Platform: [facility] Location of provider rendering services: practice address Location of patient: address on file Patient Identification confirmed using: Name, : Yes Telehealth method: video Patient verbally consented to treatment: Yes Patient verbally consented to billing insurance company: Yes Patient informed of any privacy concerns related to visit: Yes Minutes spent on Phone/Video with Pt.: 25 Assessment and Plan Assessment & Plan (1) EVERTON (generalized anxiety disorder): Status: Acute Code(s): F41.1 - Generalized anxiety disorder (2) ADHD (attention deficit hyperactivity disorder): Status: Acute Qualifiers: Attention deficit-hyperactivity disorder type: combined inattentive-hyperactive Qualified Code(s): F90.2 - Attention-deficit hyperactivity disorder, combined type Code(s): F90.9 - Attention-deficit hyperactivity disorder, unspecified type Plan stop prozac 20mg Start celexa 20mg daily x 7 days then increase to 40mg daily thereafter continue ritlin 10mg bid stop concerta continue hydroxyzine and and clonazepam 0.5mg bid prn anxiety follow up in 4 weeks Medications: New citalopram (Celexa) 40 mg PO DAILY 90 tabs 1RF Refilled methylphenidate HCl 10 mg PO BID 60 tabs 0RF 30 days clonazepam 0.5 mg PO BID PRN 60 tabs 2RF anxiety Discontinued fluoxetine (Prozac) Discontinued Reason: Doctor's Order 20 mg PO DAILY 30 caps 0RF Counseling and coordination of Care Pt. Self Management counseling: Maintenance-social rhythm, Mod caffeine/ETOH intake, Nutrition education and improvement and General coping skills Medication management counseling: Effectiveness, Side effects, Dosing range, Duration, Drug interaction and Adherence Diagnosis and Prognosis Counseling: Accuracy of diagnosis, Prognosis over time, Impact of diagnosis on life functions, Impact of family relationship, Problematic behaviors secondary to diagnosis and Adequacy of current interventions Details: I spent 35 minutes reviewing the record, seeing the patient and documenting in the medical record. Counseling provided to the patient/caregiver as outlined below. Addressed patient/caregiver concerns regarding current medication regime including effective adherence. Addressed patient/caregiver concerns regarding diagnosis and prognosis including accuracy of diagnosis, prognosis over time, impact of diagnosis. Addressed patient/caregiver concerns regarding impact of recent stressors. 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
--- OUTSIDE RECORDS SUMMARY | 2025-10-04 16:53 | XMS_ITS | Continuity of Care Document ---
Author Organization [facility] [address] [place] [address] Phone [phone] Care Team Providers Care Extract Puller Name Role Phone Nessa Holley M.D. Care Team Informati on Job Foreman [phone] Problems Active Problems Provider Date Anxiety Nessa [...] Tobacco Use Start: Unknown Never Smoked Cigarettes Smoking Status Reviewed: 09/24/25 Never Smoked Cigaret nhi ETOH Use Occasionally consumes wine Allergies and adverse reactions Active Allergies Criticality Reaction Severity Comments Date Sulfamethizole Unable to assess criticality 08/01/2022 Epinephrine Unable to assess criticality 08/01/2022 Medications Active Medications SIG Qnty Indications Ordering Provider Date Clonazepam0.5mg Tablets 1 tab by mouth every 8 hours as needed 30tabs Nessa Holley M.D. [id number] Capsules DR 1 by mouth bid prn 90caps Nessa Holley M.D. Vitamin [id number] (1999 Ut) Capsules 1 by mouth every day Nessa Holley M.D. Hydroxyzine [id number] Tablets take 1 tablet by mouth daily as needed Unknown Fluoxetine [id number] Capsules 1qd Unknown Vital Signs Date Vital Result Comment 09/24/2025 10:09am BP Systolic 120 mmHg BP Diastolic 82 mmHg Heart Rate 90 /min Height 65 inches 5'5 Weight 176.00 lb BMI (Body Mass Index) 29.3 kg/m2 Results Test Acquired Date Facility Test Result H/L Range Note Lipid Panel 10/02/2025 [facility] Cholesterol, Total 241 mg/dL High 100-199 Triglycerides 52 mg/dL 0-149 HDL Cholesterol 89 mg/dL >39 VLDL Cholesterol Avery 8 mg/dL 5-40 LDL Chol Calc (Rust) 144 mg/dL High 0-99 LDL Calc Comment: TNP Urinalysis, Complete 10/02/2025 [facility] Specific [place] 1.015 1.005-1.0 30 pH 6.5 5.0-7.5 Urine-Color Yellow Yellow Appearance Clear Clear WBC Esterase Trace Abnormal Negative Protein Negative Negative/ Trace Glucose Negative Negative Ketones Negative Negative Occult Blood Negative Negative Bilirubin Negative Negative Urobilinogen,Se mi-Qn 0.2 mg/dL 0.2-1.0 Nitrite, Urine Negative Negative Microscopic Examination See below: 1 Microscopic Examination TNP WBC None seen /hpf 0 - 5 RBC None seen /hpf 0 - 2 Epithelial Cells (non renal) 0-10 /hpf 0 - 10 Epithelial Cells (renal) TNP Casts None seen /lpf None seen Cast Type TNP Crystals TNP Crystal Type TNP Mucus Threads TNP Bacteria None seen None seen/Few Yeast TNP Trichomonas TNP Comment TNP CBC With Differential/Pl atelet 10/02/2025 [facility] WBC 4.1 x10E3/uL 3.4-10.8 RBC 4.47 x10E6/uL 3.77-5.28 Hemoglobin 14.5 g/dL 11.1-15.9 Hematocrit 44.6 % 34.0-46.6 MCV 100 fL High 79-97 MCH 32.4 pg 26.6-33.0 MCHC 32.5 g/dL 31.5-35.7 RDW 12.6 % 11.7-15.4 Platelets 271 x10E3/uL 150-450 Neutrophils 54 % Not Estab. Lymphs 28 % Not Estab. Monocytes 10 % Not Estab. Eos 8 % Not Estab. Basos 0 % Not Estab. Immature Cells TNP Neutrophils (Absolute) 2.2 x10E3/uL 1.4-7.0 Lymphs (Absolute) 1.2 x10E3/uL 0.7-3.1 Monocytes(Absol kasaan) 0.4 x10E3/uL 0.1-0.9 Eos (Absolute) 0.3 x10E3/uL 0.0-0.4 Baso (Absolute) 0.0 x10E3/uL 0.0-0.2 Immature Granulocytes 0 % Not Estab. Immature Grans (Abs) 0.0 x10E3/uL 0.0-0.1 NRBC TNP Hematology Comments: TNP TSH Rfx on Abnormal to Free T4 10/02/2025 [facility] TSH RFX On Abnormal To Free T4 7.390 uIU/mL High 0.450-4.5 00 T4,Free (Direct) 0.90 ng/dL 0.82-1.77 Vitamin D, 25-Hydroxy 10/02/2025 [facility] Vitamin D, 25-Hydroxy 34.7 ng/mL 30.0-100. 0 2 Comp. Metabolic Panel (14) 10/02/2025 [facility] Glucose 96 mg/dL 70-99 BUN 20 mg/dL 8-27 Creatinine 0.83 mg/dL 0.57-1.00 eGFR 80 mL/min/1.73 >59 BUN/Creatinine Ratio 24 12-28 Sodium 137 mmol/L 134-144 Potassium 4.4 mmol/L 3.5-5.2 Chloride 100 mmol/L 96-106 Carbon Dioxide, Total 24 mmol/L 20-29 Calcium 9.4 mg/dL 8.7-10.3 Protein, Total 6.9 g/dL 6.0-8.5 Albumin 4.3 g/dL 3.9-4.9 Globulin, Total 2.6 g/dL 1.5-4.5 Bilirubin, Total 0.4 mg/dL 0.0-1.2 Alkaline Phosphatase 89 IU/L 49-135 Ast (Sgot) 29 IU/L 0-40 Alt (SGPT) 28 IU/L 0-32 Xray 09/24/2025 [facility] Mammography Screening Bilateral <pending> Urinalysis, Complete 08/28/2024 [facility] Specific [place] 1.016 1.005-1.0 30 pH 8.0 High 5.0-7.5 Urine-Color Yellow Yellow Appearance Clear Clear WBC Esterase Negative Negative Protein Negative Negative/ Trace Glucose Negative Negative Ketones Negative Negative Occult Blood Negative Negative Bilirubin Negative Negative Urobilinogen,Se mi-Qn 0.2 mg/dL 0.2-1.0 Nitrite, Urine Negative Negative Microscopic Examination See Comment: 3 Microscopic Examination See below: 4 WBC None seen /hpf 0 - 5 RBC 0-2 /hpf 0 - 2 Epithelial Cells (non renal) 0-10 /hpf 0 - 10 Epithelial Cells (renal) TNP Casts None seen /lpf None seen Cast Type TNP Crystals TNP Crystal Type TNP Mucus Threads TNP Bacteria None seen None seen/Few Yeast TNP Trichomonas TNP Comment TNP Comp. Metabolic Panel (14) 08/28/2024 [facility] Glucose [...] IU/L 0-40 Alt (SGPT) 16 IU/L 0-32 C-Reactive Protein, Cardiac 08/28/2024 [facility] C-Reactive Protein, Cardiac 0.80 mg/L 0.00-3.00 5 Vitamin D, 25-Hydroxy 08/28/2024 [facility] Vitamin D, 25-Hydroxy 36.4 ng/mL 30.0-100. 0 6 CBC With Differential/Pl atelet 08/28/2024 [facility] WBC [...] 1.4-7.0 Lymphs (Absolute) 1.3 x10E3/uL 0.7-3.1 Monocytes(Absol kasaan) 0.4 x10E3/uL 0.1-0.9 Eos (Absolute) 0.3 x10E3/uL 0.0-0.4 Baso (Absolute) 0.0 x10E3/uL 0.0-0.2 Immature Granulocytes 0 % Not Estab. Immature Grans (Abs) 0.0 x10E3/uL 0.0-0.1 NRBC TNP Hematology Comments: TNP Lipid Panel 08/28/2024 [facility] Cholesterol, Total 239 mg/dL High 100-199 Triglycerides 87 mg/dL 0-149 HDL Cholesterol 86 mg/dL >39 VLDL Cholesterol Avery 15 mg/dL 5-40 LDL Chol Calc (Rust) 138 mg/dL High 0-99 LDL Calc Comment: TNP TSH+Free T4 08/28/2024 [facility] TSH 5.130 uIU/mL High 0.450-4.5 00 T4,Free(Direct) 0.91 ng/dL 0.82- 1.77 Comprehensive Metabolic Panl 08/10/2023 [facility] Glucose 99 mg/dL (70-99) [...] (0-33) Estimated GFR Creatinine 69 ML/MIN/1.73 M2 7 Lipid Panel 08/10/2023 [facility] Cholesterol, Total 256 mg/dL High (<200) Triglyceride 59 mg/dL (<150) HDL Chol 99 mg/dL (>39) LDL Cholesterol, Calculated 145 mg/dL High (0-130) Non HDL Cholesterol (Calc) 157 mg/dL (<160) Complete Abc With Diff 08/10/2023 [facility] WBC 4.5 K/MM3 (4.0-11.0 [...] K/MM3 (1.3-7.0) Lymph # 1.3 K/MM3 (0.8-3.1) [place]# 0.5 K/MM3 (0.4-0.9) Eo # 0.5 K/MM3 High (0.0-0.4) Baso # 0.0 K/MM3 (0.0-0.1) Abs. Imm Gran 0.0 K/MM3 Neut 48.1 % (44-76) Lymph 29.7 % (15-43) Monocyte 11.2 % High (4.5-10.5 ) Eo 10.6 % High (0-6) Baso 0.2 % (0-2) Imm Gran 0.2 % Urinalysis Complete 08/10/2023 [facility] Appear/Color LIGHT YELLOW 8 SP. [place] 1.015 (1.002-1. 030) Urine PH 6.5 (5.0-8.0) Urine Albumin NEGATIVE (Neg) Urine Glucose NEGATIVE (Neg) Urine Ketones NEGATIVE (Neg) Urine Bilirubin NEGATIVE (Neg) Urine Hemoglobin TRACE Abnormal (Neg) Urine Nitrite NEGATIVE (Neg) Urine Leukocyte NEGATIVE (Neg) Urobilinogen NORMAL mg/dL (Norm) Urine WBCs NONE SEEN /HPF (0-5) Urine RBCs 1 /HPF (0-3) Squamous Epith 1 /HPF (0-8) TSH With Reflex To FT4 08/10/2023 [facility] TSH With Reflex To FT4 5.05 uIU/mL High (0.4-4.2) 25Oh Vitamin D 08/10/2023 [facility] 25Oh Vitamin D 41.4 NG/ML (20-50) Free T4 08/10/2023 [facility] Free T4 0.93 ng/dL (0.70-1.8 0) Urinalysis Complete 12/19/2022 [facility] Appear/Color LIGHT YELLOW 9 SP. [place] 1.008 (1.002-1. 030) Urine PH 6.5 (5.0-8.0) [...] Epith 1 /HPF (0-8) Culture Urine 12/19/2022 [facility] Specimen Description CLEAN CATCH (URI <SEE NOTE> 10 Special Requests NONE Culture Mixed bacterial <SEE NOTE> 11 Report Status FINAL 12/21/2022 12 Comprehensive Metabolic Panl 08/07/2022 [facility] Glucose 93 mg/dL (70-99) [...] (0-33) Estimated GFR Creatinine 78 ML/MIN/1.73 M2 13 Lipid Panel 08/07/2022 [facility] Cholesterol, Total 263 mg/dL High (<200) Triglyceride 71 mg/dL (<150) HDL Chol 86 mg/dL (>39) LDL Cholesterol, Calculated 163 mg/dL High (0-130) Non HDL Cholesterol (Calc) 177 mg/dL High (<160) Urinalysis Complete 08/07/2022 [facility] Appear/Color LIGHT YELLOW 14 SP. [place] 1.014 (1.002-1. 030) Urine PH 7.5 (5.0-8.0) Urine Albumin NEGATIVE (Neg) Urine Glucose NEGATIVE (Neg) Urine Ketones NEGATIVE (Neg) Urine Bilirubin NEGATIVE (Neg) Urine Hemoglobin NEGATIVE (Neg) Urine Nitrite NEGATIVE (Neg) Urine Leukocyte NEGATIVE (Neg) Urobilinogen NORMAL mg/dL (Norm) Urine WBCs 1 /HPF (0-5) Urine RBCs 1 /HPF (0-3) Squamous Epith <1 /HPF (0-8) Hemoglobin A1c 08/07/2022 [facility] Hemoglobin A1c 5.6 % (4.0-5.6) 15 Complete Abc With Diff 08/07/2022 [facility] WBC 5.0 K/MM3 (4.0-11.0 [...] K/MM3 (1.3-7.0) Lymph # 1.2 K/MM3 (0.8-3.1) [place]# 0.6 K/MM3 (0.4-0.9) Eo # 0.8 K/MM3 High (0.0-0.4) Baso # 0.0 K/MM3 (0.0-0.1) Abs. Imm Gran 0.0 K/MM3 Neut 48.0 % (44-76) Lymph 23.1 % (15-43) Monocyte 12.0 % High (4.5-10.5 ) Eo 15.9 % High (0-6) Baso 0.6 % (0-2) Imm Gran 0.4 % TSH With Reflex To FT4 08/07/2022 [facility] TSH With Reflex To FT4 3.57 uIU/mL (0.4-4.2) 1 Microscopic was avtar cated and was performed. 2 Vitamin D deficiency has been defined by the [place] [employer] and an Endocrine Society practice guideline as a level of serum 25-OH vitamin D less than 20 ng/mL (1,2). The Endocrine Society went on to further define vitamin D insufficiency as a level between 21 and 29 ng/mL (2). 1. IOM ([place] [employer]). 2010. Dietary reference intakes for calcium and D. [place]: The National [employer] Press. 2. Herbert Javed, Emil REBOLLAR, et al. Evaluation, treatment, and prevention of vitamin D deficiency: an Endocrine Society clinical practice guideline. JCEM. 2010; 96(7):1911-30. 3 Microscopic follows if indicated. 4 Microscopic was avtar cated and was performed. 5 Relative Risk for Fu ture Cardiovascular Event Low <1.00 Average 1.00 - 3.00 High >3.00 6 Vitamin D deficiency has been defined by the [place] [employer] and an Endocrine Society practice guideline as a level of serum 25-OH vitamin D less than 20 ng/mL (1,2). The Endocrine Society went on to further define vitamin D insufficiency as a level between 21 and 29 ng/mL (2). 1. IOM ([place] [employer]). 2010. Dietary reference intakes for calcium and D. [place]: The National [employer] Press. 2. Ryan DIAS, Herbert PRICE, Emil REBOLLAR, et al. Evaluation, treatment, and prevention of vitamin D deficiency: an Endocrine Society clinical practice guideline. JCEM. 2010; 96(7):1911-30. 7 Creatinine based est imated glomerular filtration (eGFR) in adults is calculated using the National Kidney Foundation recommended 2020 CKD-EPI equation. Estimates GFR from serum creatinine, age and sex. 8 CLEAR 9 TURBID 10 CLEAN CATCH (URINE) 11 Mixed bacterial irene a, indicative of urogenital contamination. 12 FINAL 12/21/2022 13 Creatinine based est imated glomerular filtration (eGFR) in adults is calculated using the National Kidney Foundation recommended 2020 CKD-EPI equation. Estimates GFR from serum creatinine, age and sex. 14 CLEAR 15 MONITORING: In known diabetic patients, hemoglobin A1c targets should be discussed with health care provider. DIAGNOSTIC USE: The [place] Diabetes Association (ADA) and the World Health [...] 1 Procedures Date Code Description Status 08/02/2023 63248 Collection Of Venous Blood B y Venipuncture Completed Medical Devices Description No Information Available Encounters Type Date Location Provider Dx Diagnosis Office Visit 09/24/2025 9:15a Main Office Nessa Holley M.D. Z00.01 Encounter for general adult medical exam w abnormal findings F41.1 Generalized anxiety disorder K21.9 Gastro-esophageal re flux disease without esophagitis E78.00 Pure hypercholestero lemia, unspecified E03.9 Hypothyroidism, unsp ecified M85.80 Oth disrd of bone de nsity and structure, unspecified site F33.0 Major depressive dis order, recurrent, mild F90.9 Attention-deficit hy peractivity disorder, unspecified type R09.82 Postnasal drip R05.3 Chronic cough Assessments Date Code Description Provider 09/24/2025 Z00.01 Encounter for ge neral adult medical examination with abnormal findings Nessa Holley M.D. 09/24/2025 F41.1 Generalized anxiety disorder Nessa Holley M.D. 09/24/2025 K21.9 Gastro-esophagea l reflux disease without esophagitis Nessa Holley M.D. 09/24/2025 E78.00 Pure hypercholesterolemia, u nspecified Nessa Holley M.D. 09/24/2025 E03.9 Hypothyroidism, unspecified Nessa Holley M.D. 09/24/2025 M85.80 Other specified disorders of bone density and structure, unspecified site Nessa Holley M.D. 09/24/2025 F33.0 Major depressive disorder, recurrent, mild Nessa Holley M.D. 09/24/2025 F90.9 Attention-defici t hyperactivity disorder, unspecified type Nessa Holley M.D. 09/24/2025 R09.82 Postnasal drip Nessa Shaver M.D. 09/24/2025 R05.3 Chronic cough Nessa Pizano M.D. Plan of Treatment Future Appointment(s):* 09/27/2026 9:15 am - Nessa Holley M.D. at Main Office 09/24/2025 - Nessa Holley M.D.* Z00.01 Encounter for general adult medical examination with abnormal findings * F41.1 Generalized anxiety disorder * K21.9 Gastro-esophageal reflux disease without esophagitis * E78.00 Pure hypercholesterolemia, unspecified * E03.9 Hypothyroidism, unspecified * M85.80 Other specified disorders of bone density and structure, unspecified site * F33.0 Major depressive disorder, recurrent, mild * F90.9 Attention-deficit hyperactivity disorder, unspecified type * R09.82 Postnasal drip * R05.3 Chronic cough* New Xrays:* Mammography Screening Bilateral, Ordered: 09/24/25 Functional Status Description No Information Available Mental Status Description No Information Available Referrals Refer to Dr Reason for Referral Status Appt Mark Melinda Foley MD Closed [address] [place] [address] [phone] Shahnaz Felder MD Closed [address] [place], [place] [id number] [phone] [facility] [address] Dispensing Optician 10 YEAR COLONOSCOPY Closed 01/20/2024 [address] [facility] [place] [address] [phone] Jailyn Garvey PA Closed [address] [facility] [address] [place] [address] [phone] Shahnaz Felder MD Closed [address] [place] [address] [phone]
== END 2025-10-04 14:34 | disposition home or self-care (01) ==
LOC: HO.HOP 14:33
PROVIDERS: PCP Internal Medicine Endocrinology, Diabetes & Metabolism; Visit Provider Clinical Nurse Specialist Psychiatric/Mental Health
DX: F41.1 Generalized anxiety disorder (principal); F90.2 Attention-deficit hyperactivity disorder, combined type
CPT/HCPCS: 99214

== ENCOUNTER 2025-11-01 12:47 | Outpatient (AMB) | payer BC, SELFPAY ==
--- NOTE | 2025-11-01 11:34 | A.OFFPSYCH_ITS ---
Intake Intake Visit Reasons: depression Vp Purchasing Required: No Allergies Sulfa (Sulfonamide Antibiotics) Allergy (Intermediate, Unverified 02/17/24 10:30) Rash epinephrine Adverse Reaction (Unknown, Verified 02/17/24 10:30) rash Medication List - Last Reconciled 11/01/25 by Taty Bingham APRN citalopram (Celexa) 40 mg PO DAILY clonazepam 0.5 mg PO BID PRN hydroxyzine HCl 25 mg PO QID PRN methylphenidate HCl 10 mg PO BID 30 days HPI- Psychiatric Chief Complaint: depression HPI Narrative: Pt seen via telehealth for follow up for depression,anxiety and ADHD Pt has stopped prozac and resumed celexa. she has stopped concerta and resumed ritalin pt reports continued alienation from son, daughter in law and grandchild. pt has been unable to explain her behavior that hurt her daughter in laws feelings. Pt reports feeling overwhelmed at times and unable to relax Pt reports brief chest pain when very anxious she does feel calmer and less anxious on the ritalin IR instead of the concerta. pts home more often and they are negotiating activities and space. pts mother is 97 and having medical issues pt denies SI or HI no medical changes Past Psychiatric History: In therapy for 20 + yrs. On meds currently2 serious depressive episodes- first episode of depression at age 19 when father . then again at age 38 then again at age 48. For years, used keeping busy to manage anxiety. As getting older doesn't want to use busyness to cope; she would like to be able to relax more often and do leisure activities. Depression at age 38 - couldn't work, no energy, cried all the time, sad, no motivation. Had a very bad work situation at the time No IPLOC, no PHP or IOP. Subjective Subjective Medication Compliance: Yes Side effects from medications: No Review of Systems Medical Review of Systems: unchanged Mental Status Exam Mental Status Exam Patient Appearance: Well Grooomed and Appropriate Patient Orientation: Person, Place, Time and Situation Level of Consciousness: Awake and Alert Patient Behavior: Appropriate and Cooperative Mood Description: Depressed, Anxious (mild) and Sad Affect Description: Depressed, Anxious and Sad Patient Cognition Impaired: No Ability to Follow Directions: Good Speech Pattern: Clear and Coherent Memory Description: Intact Hallucinations: None Delusions: Not Present Thought Process: Intact and Goal Oriented Thought Content: positive for Intact and positive for Goal Oriented Judgement: Good Telehealth Telehealth Telehealth Platform: [employer] Location of provider rendering services: practice address Location of patient: address on file Patient Identification confirmed using: Name, : Yes Telehealth method: video Patient verbally consented to treatment: Yes Patient verbally consented to billing insurance company: Yes Patient informed of any privacy concerns related to visit: Yes Minutes spent on Phone/Video with Pt.: 24 Assessment and Plan Assessment & Plan (1) EVERTON (generalized anxiety disorder): Status: Acute Code(s): F41.1 - Generalized anxiety disorder (2) ADHD (attention deficit hyperactivity disorder): Status: Acute Qualifiers: Attention deficit-hyperactivity disorder type: combined inattentive- hyperactive Qualified Code(s): F90.2 - Attention-deficit hyperactivity disorder, combined type Code(s): F90.9 - Attention-deficit hyperactivity disorder, unspecified type Plan Continue celexa 40mg daily continue riatlin 10mg bid continue hydroxyzine and and clonazepam 0.5mg bid prn anxiety EKG due to tachycardia and transient chest pain follow up in 4 weeks Medications: Refilled methylphenidate HCl 10 mg PO BID 60 tabs 0RF 30 days citalopram (Celexa) 40 mg PO DAILY 90 tabs 1RF clonazepam 0.5 mg PO BID PRN 60 tabs 2RF anxiety Orders: Orders ECG 12 lead EKG Today R00.0 - Tachycardia, unspecified Referrals Sleep Medicine Referral F41.1 - Generalized anxiety disorder, G47.39 - Other sleep apnea Counseling and coordination of Care Pt. Self Management counseling: Maintenance-social rhythm, Mod caffeine/ETOH intake, Nutrition education and improvement and General coping skills Medication management counseling: Effectiveness, Side effects, Dosing range, Duration, Drug interaction and Adherence Diagnosis and Prognosis Counseling: Accuracy of diagnosis, Prognosis over time, Impact of diagnosis on life functions, Impact of family relationship, Problematic behaviors secondary to diagnosis and Adequacy of current interventions Details: I spent 35 minutes reviewing the record, seeing the patient and documenting in the medical record. Counseling provided to the patient/caregiver as outlined below. Addressed patient/caregiver concerns regarding current medication regime including effective adherence. Addressed patient/caregiver concerns regarding diagnosis and prognosis including accuracy of diagnosis, prognosis over time, impact of diagnosis. Addressed patient/caregiver concerns regarding impact of recent stressors. 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
== END 2025-11-01 12:49 | disposition home or self-care (01) ==
LOC: HO.HOP 12:47
PROVIDERS: PCP Internal Medicine Endocrinology, Diabetes & Metabolism; Visit Provider Clinical Nurse Specialist Psychiatric/Mental Health
DX: F41.1 Generalized anxiety disorder (principal); F90.2 Attention-deficit hyperactivity disorder, combined type
CPT/HCPCS: 99214

== ENCOUNTER → 2025-11-02 12:04 | Outpatient (REF) | payer BC, SELFPAY ==
--- NOTE | 2025-11-02 12:09 | ECG_ITS ---
Test Reason : TACHYCARDIA Blood Pressure : */* mmHG Vent. Rate : 83 BPM Atrial Rate : 83 BPM P-R Int : 168 ms QRS Dur : 76 ms QT Int : 368 ms P-R-T Axes : 66 -53 52 degrees QTcB Int : 432 ms Normal sinus rhythm Left anterior fascicular block Abnormal ECG No previous ECGs available Referred By: Taty Bingham Electronically Signed By: AARON COLILNS MD
== END ==
LOC: HO.CARD 12:04
PROVIDERS: PCP Internal Medicine Endocrinology, Diabetes & Metabolism; Visit Provider Clinical Nurse Specialist Psychiatric/Mental Health
DX: R00.0 Tachycardia, unspecified (principal)
CPT/HCPCS: 93005

== ENCOUNTER → 2025-11-02 12:09 | Outpatient (BNV) | payer BC, SELFPAY | PROVIDERS: PCP Internal Medicine Endocrinology, Diabetes & Metabolism; Visit Provider Internal Medicine Cardiovascular Disease | DX: I44.4 Left anterior fascicular block (principal) | CPT/HCPCS: 93010 ==